=== PATIENT | male | born 1955 | race African-American/Black ===

== ENCOUNTER → 2016-08-31 | Outpatient (CLI) | payer MEDICARE, MEDICAID ==
[~2016-08-31] MED LIST: /LABE20TA; /TAMS4CA OR; ACET65TA; AMBI5TAB OR; ASPI325T; CIPR25SS OR; DARV100T; FLAG500T OR; FLOMAX; LISI10TA4 OR; NICO21DI4; NICO21DI4 TD; PERC5TAB8 OR; TRAM50TA2; VICO5TAB; VICO5TAB OR; flomax
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
== END ==
LOC: M PAIN 10:40
PROVIDERS: ATTEND Nurse Practitioner Family
DX: G62.9 Polyneuropathy, unspecified (principal); I73.1 Thromboangiitis obliterans [Buerger's disease]; Z79.891 Long term (current) use of opiate analgesic; Z79.899 Other long term (current) drug therapy; Z79.82 Long term (current) use of aspirin; I10 Essential (primary) hypertension; M19.90 Unspecified osteoarthritis, unspecified site; F32.9 Major depressive disorder, single episode, unspecified; I95.1 Orthostatic hypotension

== ENCOUNTER → 2016-10-19 | Outpatient (CLI) | payer MEDICARE, MEDICAID ==
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
== END | disposition home or self-care (01) ==
LOC: M PAIN 10:00
PROVIDERS: ATTEND Nurse Practitioner Family
DX: Z09 Encounter for follow-up examination after completed treatment for conditions other than malignant neoplasm (principal); G89.29 Other chronic pain; G62.9 Polyneuropathy, unspecified; I10 Essential (primary) hypertension; G47.33 Obstructive sleep apnea (adult) (pediatric); G43.909 Migraine, unspecified, not intractable, without status migrainosus; N40.0 Benign prostatic hyperplasia without lower urinary tract symptoms; F33.9 Major depressive disorder, recurrent, unspecified; M19.90 Unspecified osteoarthritis, unspecified site; G47.00 Insomnia, unspecified; I95.1 Orthostatic hypotension; I73.00 Raynaud's syndrome without gangrene; Z87.442 Personal history of urinary calculi; Z98.1 Arthrodesis status; Z79.899 Other long term (current) drug therapy; Z79.891 Long term (current) use of opiate analgesic; Z79.82 Long term (current) use of aspirin; Z79.01 Long term (current) use of anticoagulants; Z91.048 Other nonmedicinal substance allergy status; Z88.4 Allergy status to anesthetic agent

== ENCOUNTER → 2016-11-16 | Outpatient (CLI) | payer MEDICARE, MEDICAID ==
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
== END ==
LOC: M PAIN 10:20
PROVIDERS: ATTEND Nurse Practitioner Family
DX: G62.9 Polyneuropathy, unspecified (principal); M79.641 Pain in right hand; M79.642 Pain in left hand; F32.9 Major depressive disorder, single episode, unspecified; I73.00 Raynaud's syndrome without gangrene; N40.0 Benign prostatic hyperplasia without lower urinary tract symptoms; G43.909 Migraine, unspecified, not intractable, without status migrainosus; G47.33 Obstructive sleep apnea (adult) (pediatric); E78.2 Mixed hyperlipidemia; I35.1 Nonrheumatic aortic (valve) insufficiency; Z98.1 Arthrodesis status; Z87.442 Personal history of urinary calculi; Z79.891 Long term (current) use of opiate analgesic; Z79.82 Long term (current) use of aspirin; Z79.899 Other long term (current) drug therapy; Z88.6 Allergy status to analgesic agent; Z91.048 Other nonmedicinal substance allergy status

== ENCOUNTER → 2016-12-01 | Outpatient (REF) | payer MEDICARE, MEDICAID ==
[~2016-12-01] MED LIST changes: +MORP-38 PO
[2016-12-01 13:23] LABS: MEAN CORPUSCULAR HEMOGLOBIN 26.4 pg (27.0-33.0); MEAN CORPUSCULAR HGB CONC 32.5 g/dl (32.0-36.5); MEAN CORPUSCULAR VOLUME 81.3 fl (80.0-96.0); RED CELL DISTRIBUTION WIDTH 13.3 % (11.5-14.5); WHITE BLOOD COUNT 6.3 K/mm3 (4.0-10.0)
[2016-12-01 13:55] LABS: ALBUMIN 3.2 GM/DL (3.2-5.2); ALBUMIN/GLOBULIN RATIO 0.65 (1.00-1.93); ALKALINE PHOSPHATASE 51 U/L (45-117); ALT/SGPT 14 U/L (12-78); ANION GAP 7 MEQ/L (8-16); AST/SGOT 10 U/L (15-37); BILIRUBIN,TOTAL 0.5 MG/DL (0.2-1.0); BLOOD UREA NITROGEN 11 MG/DL (7-18); CALCIUM LEVEL 9.2 MG/DL (8.8-10.2); CARBON DIOXIDE LEVEL 31 MEQ/L (21-32); CHLORIDE LEVEL 100 MEQ/L (98-107); CREATININE FOR GFR 0.78 MG/DL (0.70-1.30); GLOMERULAR FILTRATION RATE > 60.0 (>49); GLUCOSE, FASTING 85 MG/DL (80-110); POTASSIUM SERUM 4.7 MEQ/L (3.5-5.1); SODIUM LEVEL 138 MEQ/L (136-145); TOTAL PROTEIN 8.1 GM/DL (6.4-8.2)
== END ==
LOC: M SFHCPLAZ 10:29
DX: Z02.89 Encounter for other administrative examinations (principal); Z79.899 Other long term (current) drug therapy

== ENCOUNTER 2016-12-02 10:02 | Emergency (ER) | payer MEDICARE, MEDICAID ==
[~2016-12-02] VITALS: Ht 167.6 cm; Wt 68.0 kg
[~2016-12-02 10:02] MED LIST changes: -MORP-38 PO
[2016-12-02] MEDS ORDERED: MORP-38 PO (10:20)
[2016-12-02] MEDS ORDERED: NS 1,000 ML IV ONE (11:00)
[2016-12-02] MEDS ORDERED: ONDANSETRON 4MG/2ML VIAL (J2405) IV ONE (11:00)
[2016-12-02] MEDS ORDERED: KETOROLAC 30 MG/ML VIAL (J1885) IV ONE (11:00)
[2016-12-02 11:36] LABS: BASO # 0.1 K/mm3 (0.0-0.2); EOS # 0.2 K/mm3 (0.0-0.50); EOS % 4.2 % (0.0-3.0); LARGE UNSTAINED CELL # 0.1 K/mm3 (0.0-0.4); LYMPH # 1.9 K/mm3 (1.5-4.5); LYMPH % 31.6 % (24.0-44.0); MEAN CORPUSCULAR HEMOGLOBIN 26.5 pg (27.0-33.0); MEAN CORPUSCULAR HGB CONC 31.8 g/dl (32.0-36.5); MEAN CORPUSCULAR VOLUME 83.4 fl (80.0-96.0); MONO # 0.5 K/mm3 (0.0-0.8); MONO % 8.4 % (0.0-5.0); NEUTROPHILS # 3.1 K/mm3 (1.8-7.7); NEUTROPHILS % 52.7 % (36.0-66.0); PLATELET COUNT, AUTOMATED 344 k/mm3 (150-450); RED CELL DISTRIBUTION WIDTH 13.2 % (11.5-14.5); WHITE BLOOD COUNT 5.9 K/mm3 (4.0-10.0)
[2016-12-02 12:04] LABS: ALBUMIN 3.1 GM/DL (3.2-5.2); ALBUMIN/GLOBULIN RATIO 0.56 (1.00-1.93); ALKALINE PHOSPHATASE 51 U/L (45-117); ALT/SGPT 16 U/L (12-78); ANION GAP 6 MEQ/L (8-16); AST/SGOT 13 U/L (15-37); BILIRUBIN,DIRECT < 0.1 MG/DL (0.0-0.2); BILIRUBIN,TOTAL 0.4 MG/DL (0.2-1.0); BLOOD UREA NITROGEN 10 MG/DL (7-18); CARBON DIOXIDE LEVEL 29 MEQ/L (21-32); CHLORIDE LEVEL 102 MEQ/L (98-107); CREATININE FOR GFR 0.83 MG/DL (0.70-1.30); GLOMERULAR FILTRATION RATE > 60.0 (>49); GLUCOSE, FASTING 88 MG/DL (80-110); SODIUM LEVEL 137 MEQ/L (136-145); TOTAL PROTEIN 8.6 GM/DL (6.4-8.2)
[2016-12-02] MEDS ORDERED: ISOVUE-370 76% 100ML VIAL (Q9967) As Ordered ONE (13:05)
[2016-12-02 14:17] VITALS: BP 163/98
--- NOTE | 2016-12-02 14:27 | REP ---
CT ABDOMEN AND PELVIS WITHOUT CONTRAST: CT abdomen and pelvis is performed without oral or IV contrast. Sagittal and coronal reconstruction images are performed. Comparison made with prior study of 03/30/2011 at [facility]. There are mild interstitial fibrotic changes in the lung bases. Liver demonstrates no gross abnormality with a few tiny scattered calcifications. Gallbladder is grossly unremarkable. Spleen, adrenals, and pancreas are grossly unremarkable. There does appear to be mild right hydronephrosis and proximal hydroureter. There appears to be abnormal soft tissue surrounding the distal, infrarenal abdominal aorta. This extends into the iliac regions. Abdominal aorta appears ectatic, but not aneurysmal. There is a tiny amount of free fluid in the right lower quadrant. I would recommend CT with IV contrast to better evaluate the distal abdominal aorta and surrounding soft tissue and also to better differentiate the appendix. IMPRESSION: Mild right hydronephrosis. Abnormal soft tissue density surrounding the distal abdominal aorta. This is of uncertain significance. Recommend CT abdomen and pelvis with IV contrast to better evaluate. Signed by Niko Milton MD 12/03/2016 05:13 P
--- NOTE | 2016-12-02 14:38 | REP ---
CT ABDOMEN AND PELVIS WITH CONTRAST: TECHNIQUE: Axial contrast enhanced images from the lung bases to the pubic symphysis using 100 mL Isovue 370 intravenous contrast material with multiplanar reformations. The visualized lung bases demonstrate mild interstitial fibrotic change. The liver demonstrates no enhancing mass. The spleen, adrenals, pancreas and left kidney appear normal. The right kidney demonstrates mild hydronephrosis and there is mild right hydroureter proximally. The distal abdominal aorta demonstrates mild to moderate atherosclerotic calcification with mild ectasia up to 2.5 cm in diameter. There is ill-defined soft tissue seen circumferentially surrounding the distal abdominal aorta. This begins just below the level of the renal arteries and extends below the aortic bifurcation, surrounding the common iliac arteries bilaterally as well. This abnormal soft tissue appears to be obstruct the mid right ureter causing the mild right hydronephrosis. A very small amount of free fluid is seen in the right lower quadrant. The appendix does not appear to be inflamed. No bowel wall thickening is seen. The urinary bladder is minimally distended and not optimally evaluated. IMPRESSION: Diffuse abnormal soft tissue surrounding the distal abdominal aorta below the level of the renal arteries and surrounding the common iliac arteries in the pelvis as well. The soft tissue appears to be obstructing the mid right ureter causing mild right hydronephrosis and proximal right hydroureter. The distal abdominal aorta itself demonstrates atherosclerotic calcification with no dissection or evidence for rupture. 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 Lymphoma is a less likely possibility and needs to be excluded. Signed by Niko Milton MD 12/03/2016 05:13 P
--- NOTE | 2016-12-06 08:40 | ED PDOC ---
Post-Departure Follow-Up radiology report faxed to PCP, Alee Terry MD December 06, 2016 08:40
== END 2016-12-02 14:29 | disposition home or self-care (01) ==
LOC: M ED 11:15
DX: N35.9 Urethral stricture, unspecified (principal); N13.5 Crossing vessel and stricture of ureter without hydronephrosis; I10 Essential (primary) hypertension; J45.909 Unspecified asthma, uncomplicated; Z87.442 Personal history of urinary calculi; Z79.891 Long term (current) use of opiate analgesic; Z79.899 Other long term (current) drug therapy; Z88.4 Allergy status to anesthetic agent
CPT/HCPCS: 74176; 74177; 80048; 80076; 81001; 83690; 85025; 87086; 96361; 96374; 96375; 99283; J1885; J2405; Q9967

== ENCOUNTER → 2016-12-09 | Outpatient (REF) | payer MEDICARE, MEDICAID ==
[~2016-12-09] MED LIST changes: +MORP-38 PO
[2016-12-09 16:52] LABS: CALCIUM LEVEL 8.1 MG/DL (8.8-10.2); CREATININE FOR GFR 2.09 MG/DL (0.70-1.30); POTASSIUM SERUM 3.6 MEQ/L (3.5-5.1)
[2016-12-09 18:31] LABS: BASO # 0.1 K/mm3 (0.0-0.2); BASO % 1.1 % (0.0-1.0); EOS # 0.2 K/mm3 (0.0-0.50); EOS % 3.6 % (0.0-3.0); LARGE UNSTAINED CELL # 0.1 K/mm3 (0.0-0.4); LARGE UNSTAINED CELL % 2.3 % (0.0-4.0); LYMPH % 32.5 % (24.0-44.0); MEAN CORPUSCULAR HEMOGLOBIN 25.6 pg (27.0-33.0); MEAN CORPUSCULAR HGB CONC 30.8 g/dl (32.0-36.5); MEAN CORPUSCULAR VOLUME 83.2 fl (80.0-96.0); MONO # 0.5 K/mm3 (0.0-0.8); MONO % 8.5 % (0.0-5.0); NEUTROPHILS # 3.2 K/mm3 (1.8-7.7); NEUTROPHILS % 52.1 % (36.0-66.0); PLATELET COUNT, AUTOMATED 299 k/mm3 (150-450); RED CELL DISTRIBUTION WIDTH 13.4 % (11.5-14.5); WHITE BLOOD COUNT 6.2 K/mm3 (4.0-10.0)
[2016-12-09 21:40] LABS: ERYTHROCYTE SEDIMENTATION RATE 99 mm/hr (0-20)
== END ==
LOC: M LABDRAW1 13:34
PROVIDERS: ATTEND Student in an Organized Health Care Education/Training Program
DX: N13.5 Crossing vessel and stricture of ureter without hydronephrosis (principal); N13.1 Hydronephrosis with ureteral stricture, not elsewhere classified

== ENCOUNTER → 2016-12-14 | Outpatient (CLI) | payer MEDICARE, MEDICAID ==
[2016-12-14 13:10] LABS: MEAN CORPUSCULAR HGB CONC 31.2 g/dl (32.0-36.5); MEAN CORPUSCULAR VOLUME 83.3 fl (80.0-96.0); RED CELL DISTRIBUTION WIDTH 13.7 % (11.5-14.5)
[2016-12-14 13:30] LABS: ANION GAP 6 MEQ/L (8-16); BLOOD UREA NITROGEN 23 MG/DL (7-18); CALCIUM LEVEL 8.3 MG/DL (8.8-10.2); CARBON DIOXIDE LEVEL 30 MEQ/L (21-32); CHLORIDE LEVEL 102 MEQ/L (98-107); CREATININE FOR GFR 0.87 MG/DL (0.70-1.30); GLOMERULAR FILTRATION RATE > 60.0 (>49); GLUCOSE, FASTING 88 MG/DL (80-110); POTASSIUM SERUM 4.2 MEQ/L (3.5-5.1); SODIUM LEVEL 138 MEQ/L (136-145)
== END ==
LOC: M LAB 12:24
PROVIDERS: ATTEND Student in an Organized Health Care Education/Training Program
DX: N13.5 Crossing vessel and stricture of ureter without hydronephrosis (principal); Z13.1 Encounter for screening for diabetes mellitus

== ENCOUNTER → 2016-12-23 | Outpatient (CLI) | payer MEDICARE, MEDICAID ==
[~2016-12-23] MED LIST changes: +AMLO2.5T PO; +ASPI1TAB PO; +ASPI32ECTA PO; +CELE40TA PO; +CHLO25TA PO; +CITA40TA4 PO; +COLA100C3 PO; +CYCL5TA PO; +CYMB1CAP5 PO; +FINA5TAB2 PO; +GABA-282 PO; +HYDR-3719 PO; +LISI-538 PO; +MORP15TA2 PO; +MULT1TAB10 PO; +OMEP20CA3 PO; +PENT40TASA PO; +PRED20TA PO; +ZOCO20TA PO
--- NOTE | 2016-12-28 13:14 | DEXA ---
AP SPINE L1 - L4 1.362 1.0 0.0 LT FEMUR NECK 0.837 -1.8 -1.6 RT FEMUR TOTAL 0.917 -1.3 -1.5 TOTAL BODY TOTAL OTHER DUAL FEMUR FRAX* ASSESSMENT Risk factors: Broken bones (as adult), smoker, prednisone. 10 year probability of fracture Major osteoporotic fracture 20.0 % Hip fracture 6.8 % COMMENTS: Normal bone densitometry of the spine. There is low bone density of the hips. FOLLOW-UP: Recommendation for the next bone density exam: 2 years. DIETERD
== END ==
LOC: M WHC 13:45
PROVIDERS: ATTEND Family Medicine
DX: Z79.52 Long term (current) use of systemic steroids (principal); M85.80 Other specified disorders of bone density and structure, unspecified site

== ENCOUNTER → 2016-12-31 | Day surgery (SDC) | payer MEDICARE, MEDICAID ==
[~2016-12-31] VITALS: Ht 167.6 cm; Wt 67.4 kg
[~2016-12-31] MED LIST changes: +BUPIVACAINE/EPIN 0.25% 30 ML VIAL As Ordered ONE; +DESFLURANE 240 ML INHALANT As Ordered ONE; +GLYCOPYRROLATE INJ 0.2 MG/ML 2 ML VIAL As Ordered ONE; +LABETALOL HCL 100 MG/20 ML VIAL As Ordered ONE; +LIDOCAINE 2% INJ 100 MG/5 ML SDV (FOR ANES.) As Ordered ONE; +LR 1,000 ML IV ONE; +LR 1,000 ML IV SCH; +MIDAZOLAM INJ 2 MG/2 ML VIAL (J2250) As Ordered ONE; +NEOSTIGMINE 1MG/ML 5 ML SYRINGE (J2710) As Ordered ONE; +ONDANSETRON 4MG/2ML VIAL (J2405) As Ordered ONE; +ONDANSETRON 4MG/2ML VIAL (J2405) IV PRN; +PERCOCET 5MG/325MG TAB PO PRN; +PROPOFOL 500 MG/50 ML VIAL As Ordered ONE; +SUCCINYLCHOLINE 100 MG/5 ML SYRINGE (J0330) As Ordered ONE; +dexameTHASONE 4 MG/ML 1ML VIAL (J1100) As Ordered ONE; +fentaNYL 100 MCG/2 ML INJECTION (J3010) As Ordered ONE
[2016-12-31] MEDS: fentaNYL 100 MCG/2 ML INJECTION (J3010) IV PRN ×4 (15:37→16:05)
[2016-12-31] MEDS: LABETALOL HCL 100 MG/20 ML VIAL IV SCH ×3 (15:37→16:00)
[2016-12-31 16:00] VITALS: BP 193/93
--- NOTE | 2016-12-31 16:08 | ECGEPIP ---
Stationary ECG Study [facility] Test Date: 2016-12-31 Pat Name: EVIE DIALLO Department: Room: - Gender: M [employer] Equipment Operator: HERLINDA : 1955 Requested By: YENNY Delgado Order Number: [id number] Reading MD: Helio Guerrero Measurements Intervals [place] Rate: 60 P: 51 [place]: 175 QRS: 37 QRSD: 84 T: 64 QT: 417 QTc: 417 Interpretive Statements SINUS RHYTHM Electronically Signed On 12-31-2016 16:08:30 EDT by Helio Guerrero
[2016-12-31 17:20] VITALS: BP 170/84
--- NOTE | 2017-01-01 10:52 | RO ---
DATE OF PROCEDURE: 12/31/2016 PREPROCEDURE DIAGNOSIS: Retroperitoneal mass. POSTPROCEDURE DIAGNOSIS: Retroperitoneal mass. PROCEDURE: Diagnostic laparoscopy with retroperitoneal biopsy of mass. SURGEON: Dr. Barrera CHEMICAL RESEARCH TECHNICIAN: Dr. Campbell. ESTIMATED BLOOD LOSS: 5 mL. COMPLICATIONS: None. INDICATIONS FOR PROCEDURE: The patient is a 61-year-old male who has had difficulty with urination. On CT scan was found to have retroperitoneal fibrosis with a mass. He is unable to have CT guided biopsy due to its close proximity to the aorta. Therefore, I was called to evaluate and perform a biopsy. Risks and benefits of the procedure, not limited but including bleeding, infection, hernia formation, damage to surrounding structures, need further surgery, and possibility of not obtaining a proper diagnosis were discussed in detail with the patient and the patient's family. Informed consent was obtained and the procedure was planned. DESCRIPTION OF PROCEDURE: The patient brought back to operating room #3. After sufficient sedation, the abdomen was sterilely prepped and draped. Next, a time-out was done to confirm proper patient and proper procedure. Following that, a 5 mm incision was made in the left upper quadrant. A Veress needle was inserted and the abdomen was insufflated to 50 mmHg. Next, a 5 mm port was placed at the umbilicus. Using Optiview port, the abdomen was entered. Another 5 mm port in the right lower quadrant. The Enseal was then used to make an incision into the sigmoid colon mesentery. Circumferential incision was made through the peritoneum. There was a very large fibrous mass located at the base of the mesentery overlying the aorta. Three separate wedges of this tissue were carefully removed. Bleeding was controlled using Enseal. Once these three tissue samples were removed, it was sent to pathology. There was no bleeding encountered; however, due to some oozing, 3 grams of Nikko were placed. The abdomen was then desufflated. Skin incisions were closed with #4-0 Vicryl subcuticular sutures. The abdomen was cleaned and dried. Steri-Strips, 4x4 and tape were applied, thus ending procedure.
== END | disposition home or self-care (01) ==
LOC: M SDC 12:02
PROVIDERS: ATTEND Surgery
DX: R19.09 Other intra-abdominal and pelvic swelling, mass and lump (principal); I10 Essential (primary) hypertension; I73.00 Raynaud's syndrome without gangrene; I73.1 Thromboangiitis obliterans [Buerger's disease]; I35.0 Nonrheumatic aortic (valve) stenosis; E78.00 Pure hypercholesterolemia, unspecified; N28.9 Disorder of kidney and ureter, unspecified; F41.9 Anxiety disorder, unspecified; F32.9 Major depressive disorder, single episode, unspecified; N40.0 Benign prostatic hyperplasia without lower urinary tract symptoms; G47.33 Obstructive sleep apnea (adult) (pediatric); Z87.891 Personal history of nicotine dependence; Z79.899 Other long term (current) drug therapy; Z79.82 Long term (current) use of aspirin; Z88.4 Allergy status to anesthetic agent; Z91.048 Other nonmedicinal substance allergy status
CPT/HCPCS: 49321; 88305; 93005; A6024; J0330; J0690; J1100; J2250; J2405; J2710; J3010

== ENCOUNTER → 2017-01-17 | Outpatient (CLI) | payer MEDICARE, MEDICAID ==
[~2017-01-17] MED LIST changes: -BUPIVACAINE/EPIN 0.25% 30 ML VIAL As Ordered ONE; -DESFLURANE 240 ML INHALANT As Ordered ONE; -GLYCOPYRROLATE INJ 0.2 MG/ML 2 ML VIAL As Ordered ONE; -LABETALOL HCL 100 MG/20 ML VIAL As Ordered ONE; -LIDOCAINE 2% INJ 100 MG/5 ML SDV (FOR ANES.) As Ordered ONE; -LR 1,000 ML IV ONE; -LR 1,000 ML IV SCH; -MIDAZOLAM INJ 2 MG/2 ML VIAL (J2250) As Ordered ONE; -NEOSTIGMINE 1MG/ML 5 ML SYRINGE (J2710) As Ordered ONE; -ONDANSETRON 4MG/2ML VIAL (J2405) As Ordered ONE; -ONDANSETRON 4MG/2ML VIAL (J2405) IV PRN; -PERCOCET 5MG/325MG TAB PO PRN; -PROPOFOL 500 MG/50 ML VIAL As Ordered ONE; -SUCCINYLCHOLINE 100 MG/5 ML SYRINGE (J0330) As Ordered ONE; -dexameTHASONE 4 MG/ML 1ML VIAL (J1100) As Ordered ONE; -fentaNYL 100 MCG/2 ML INJECTION (J3010) As Ordered ONE
== END ==
LOC: M PAIN 10:00
PROVIDERS: ATTEND Nurse Practitioner Family
DX: G89.29 Other chronic pain (principal); G62.9 Polyneuropathy, unspecified; I10 Essential (primary) hypertension; I73.00 Raynaud's syndrome without gangrene; N40.0 Benign prostatic hyperplasia without lower urinary tract symptoms; G43.909 Migraine, unspecified, not intractable, without status migrainosus; G47.33 Obstructive sleep apnea (adult) (pediatric); E78.2 Mixed hyperlipidemia; I95.1 Orthostatic hypotension; I35.1 Nonrheumatic aortic (valve) insufficiency; Z98.1 Arthrodesis status; M34.9 Systemic sclerosis, unspecified; F43.21 Adjustment disorder with depressed mood; M19.90 Unspecified osteoarthritis, unspecified site; I73.1 Thromboangiitis obliterans [Buerger's disease]; Z88.6 Allergy status to analgesic agent; Z91.09 Other allergy status, other than to drugs and biological substances; Z79.891 Long term (current) use of opiate analgesic; Z79.82 Long term (current) use of aspirin; Z79.52 Long term (current) use of systemic steroids; Z79.899 Other long term (current) drug therapy

== ENCOUNTER → 2017-01-19 | Outpatient (CLI) | payer MEDICARE, MEDICAID ==
[~2017-01-19] MED LIST changes: +ASPI325T24 PO; -ASPI32ECTA PO; -COLA100C3 PO; +COLA100C5 PO; -CYCL5TA PO; +CYCL5TAB PO
--- NOTE | 2017-01-19 11:03 | REP ---
REASON: Retroperitoneal fibrosis. Multiple ultrasonographic images of the liver show the parenchymal echo pattern to be within normal limits. Incidental note is made of granulomatous calcifications in the mid portion of the right lobe. There is no intrahepatic or extrahepatic ductal dilatation. The common bile duct measures 5 mm. Multiple ultrasonographic images of the gallbladder show no abnormalities. The imaged portion of the pancreas is within normal limits. The spleen measures 8.5 x 3.4 x 7.4 cm and there is no splenic or perisplenic abnormality. The right kidney measures 9.7 x 6.1 x 3.7 cm and the left kidney measures 10.1 x 4.7 x 5.2 cm. Both kidneys are within normal limits. Multiple ultrasonographic images of the aorta show increased echoes surrounding it consistent with the finding seen by CT. There is no aortic aneurysmal dilatation. IMPRESSION: Periaortic soft tissue as described above consistent with the CT finding suggesting retroperitoneal fibrosis. Signed by Martin Armendariz DO 01/19/2017 11:05 A
== END ==
LOC: M RAD 09:09
PROVIDERS: ATTEND Student in an Organized Health Care Education/Training Program
DX: N13.5 Crossing vessel and stricture of ureter without hydronephrosis (principal)
CPT/HCPCS: 76700; G0463

== ENCOUNTER → 2017-01-26 | Outpatient (CLI) | payer MEDICARE, MEDICAID ==
--- NOTE | 2017-01-26 19:13 | REP ---
CT abdomen and pelvis without IV or oral contrast: History: Retroperitoneal fibrosis. On 12/31/2016, the patient underwent diagnostic laparoscopy with retroperitoneal mass biopsy. No malignancy identified. Comparison CT study: 12/02/2016. Comparison is also made with a remote prior CT study from 06/24/2011. CT findings: Preliminary polysom tech radiograph demonstrates a intramedullary arcelia in the left proximal femur. Moderate colonic stool and mild gaseous distension of small bowel loops in the central abdomen. The lung bases are clear. There are granulomatous calcifications in the liver. No focal liver mass lesion is appreciated. Spleen is unremarkable. No adrenal lesion is observed. No abnormality is noted in the gallbladder or pancreas. Vascular calcification is seen in the abdominal aorta. The aorta and common iliac arteries are mildly ectatic as before. Abdominal aorta measures 2.8 cm in AP dimension. The right common iliac artery measures 17 mm and the left 15 mm in AP dimension. The soft tissue process surrounding the aorta and common iliac arteries on the CT study from 12/02/2016 has improved in the interval since that prior study. Whereas this soft tissue rind around the aorta measured up to 17 mm in thickness on the previous study, today it does not appear to measure more than 6 mm in thickness. The previously noted right-sided hydronephrosis is resolved. No new lesion is seen. Small and large intestinal bowel loops are unremarkable on CT images. No evidence of free air. Vascular calcification is again noted. No bony destructive lesion. Impression: Infiltrative lesion surrounding the aorta and iliac bifurcation is improved on today's CT study compared to the 12/02/2016 exam. The previously noted right-sided hydronephrosis is resolved. Signed by Gallito Forte MD 01/26/2017 08:28 P
== END ==
LOC: M RAD 16:59
PROVIDERS: ATTEND Student in an Organized Health Care Education/Training Program
DX: N13.5 Crossing vessel and stricture of ureter without hydronephrosis (principal)

== ENCOUNTER → 2017-03-03 | Outpatient (CLI) | payer MEDICARE, MEDICAID ==
[2017-03-03 12:51] LABS: ANION GAP 10 MEQ/L (8-16); BLOOD UREA NITROGEN 9 MG/DL (7-18); CALCIUM LEVEL 8.8 MG/DL (8.8-10.2); CARBON DIOXIDE LEVEL 27 MEQ/L (21-32); CHLORIDE LEVEL 97 MEQ/L (98-107); CREATININE FOR GFR 0.69 MG/DL (0.70-1.30); GLOMERULAR FILTRATION RATE > 60.0 (>49); GLUCOSE, FASTING 120 MG/DL (80-110); SODIUM LEVEL 134 MEQ/L (136-145)
--- NOTE | 2017-03-03 13:24 | REP ---
CERVICAL SPINE, SEVEN VIEWS: HISTORY: Fall. The patient is status post C4-6 anterior spinal fusion. A fixation plate and bone graft material are present. There is no acute fracture or subluxation. The C6-7 intervertebral disc is decreased in height consistent with disc degeneration. There is narrowing of the C4-6 neural foramina secondary to uncinate process hypertrophy. There is loss of the normal lordotic curve. IMPRESSION: 1. The patient is status post C4-6 anterior spinal fusion. 2. Degenerative change as described above. Signed by Jim Valdez MD 03/03/2017 01:25 P
== END ==
LOC: M LAB 11:36
PROVIDERS: ATTEND Student in an Organized Health Care Education/Training Program
DX: N13.5 Crossing vessel and stricture of ureter without hydronephrosis (principal); W19.XXXA Unspecified fall, initial encounter; Y92.89 Other specified places as the place of occurrence of the external cause; Y93.89 Activity, other specified; Y99.8 Other external cause status; Z98.890 Other specified postprocedural states; M50.30 Other cervical disc degeneration, unspecified cervical region
CPT/HCPCS: 36415; 72052; 80048; G0463

== ENCOUNTER → 2017-03-17 | Outpatient (CLI) | payer MEDICARE, MEDICAID ==
[2017-03-17 13:45] LABS: ANION GAP 8 MEQ/L (8-16); BLOOD UREA NITROGEN 10 MG/DL (7-18); CALCIUM LEVEL 8.7 MG/DL (8.8-10.2); CARBON DIOXIDE LEVEL 27 MEQ/L (21-32); CHLORIDE LEVEL 102 MEQ/L (98-107); CREATININE FOR GFR 0.68 MG/DL (0.70-1.30); GLOMERULAR FILTRATION RATE > 60.0 (>49); GLUCOSE, FASTING 77 MG/DL (80-110); POTASSIUM SERUM 4.4 MEQ/L (3.5-5.1); SODIUM LEVEL 137 MEQ/L (136-145)
== END ==
LOC: M LAB 12:52
PROVIDERS: ATTEND Student in an Organized Health Care Education/Training Program
DX: R73.9 Hyperglycemia, unspecified (principal)

== ENCOUNTER → 2017-03-17 | Outpatient (CLI) | payer MEDICARE, MEDICAID ==
[~2017-03-17] MED LIST changes: +GASTROGRAFIN SOLUTION 30ML (Q9963) As Ordered ONE; +ISOVUE-370 76% 100ML VIAL (Q9967) As Ordered ONE
--- NOTE | 2017-03-17 16:34 | REP ---
CT ABDOMEN AND PELVIS WITH AND WITHOUT CONTRAST: TECHNIQUE: Axial noncontrast images through the abdomen followed by contrast-enhanced images through the abdomen and pelvis using 100 mL Isovue 370 intravenous contrast material, with coronal and sagittal reformations. The visualized lung bases demonstrate mild fibrotic changes. A few tiny scattered calcifications are seen in the liver. No liver mass is seen. The spleen is normal in size with no intrinsic abnormality. Adrenals, pancreas and kidneys are unremarkable. There is no hydronephrosis. There are atherosclerotic calcifications of the abdominal aorta. Once again, there is some ill defined soft tissue surrounding the distal end of the aorta and extending into the common iliac regions bilaterally. There has been significant improvement when compared to the prior CT examination of 12/02/2016 and no change when compared to the prior exam of 01/26/2017. No new adenopathy is seen in the abdomen or pelvis. There is no bowel wall thickening. There is no free air or free fluid. No pelvic mass is seen. IMPRESSION: Stable CT findings compared to 01/26/2017. Mild residual ill-defined soft tissue surrounding the distal abdominal aorta and common iliac vessels most consistent with retroperitoneal fibrosis. Signed by Niko Milton MD 03/17/2017 05:08 P
== END ==
LOC: M RAD 13:09
PROVIDERS: ATTEND Internal Medicine Medical Oncology
DX: R19.09 Other intra-abdominal and pelvic swelling, mass and lump (principal); R73.9 Hyperglycemia, unspecified
CPT/HCPCS: 36415; 74178; 80048; 83036; Q9963; Q9967

== ENCOUNTER → 2017-04-05 | Outpatient (CLI) | payer MEDICARE, MEDICAID ==
[~2017-04-05] MED LIST changes: -GASTROGRAFIN SOLUTION 30ML (Q9963) As Ordered ONE; -ISOVUE-370 76% 100ML VIAL (Q9967) As Ordered ONE
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
== END ==
LOC: M PAIN 10:00
PROVIDERS: ATTEND Nurse Practitioner Family
DX: G89.29 Other chronic pain (principal); G62.9 Polyneuropathy, unspecified; I10 Essential (primary) hypertension; I73.00 Raynaud's syndrome without gangrene; N40.0 Benign prostatic hyperplasia without lower urinary tract symptoms; G43.909 Migraine, unspecified, not intractable, without status migrainosus; F32.89 Other specified depressive episodes; E78.2 Mixed hyperlipidemia; G47.00 Insomnia, unspecified; M81.0 Age-related osteoporosis without current pathological fracture; G47.33 Obstructive sleep apnea (adult) (pediatric); Z79.891 Long term (current) use of opiate analgesic; Z87.891 Personal history of nicotine dependence; Z88.8 Allergy status to other drugs, medicaments and biological substances; Z91.048 Other nonmedicinal substance allergy status; Z79.52 Long term (current) use of systemic steroids; Z79.899 Other long term (current) drug therapy

== ENCOUNTER → 2017-05-02 | Outpatient (CLI) | payer MEDICARE, MEDICAID ==
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
== END ==
LOC: M PAIN 13:15
PROVIDERS: ATTEND Nurse Practitioner Family
DX: G89.29 Other chronic pain (principal); G62.9 Polyneuropathy, unspecified; I10 Essential (primary) hypertension; I73.1 Thromboangiitis obliterans [Buerger's disease]; G47.33 Obstructive sleep apnea (adult) (pediatric); G47.00 Insomnia, unspecified; J30.81 Allergic rhinitis due to animal (cat) (dog) hair and dander; Z99.89 Dependence on other enabling machines and devices; Z72.0 Tobacco use; D50.9 Iron deficiency anemia, unspecified; K21.9 Gastro-esophageal reflux disease without esophagitis; I73.00 Raynaud's syndrome without gangrene; F32.9 Major depressive disorder, single episode, unspecified; Z88.4 Allergy status to anesthetic agent; Z91.048 Other nonmedicinal substance allergy status; Z79.891 Long term (current) use of opiate analgesic; Z79.82 Long term (current) use of aspirin; Z79.52 Long term (current) use of systemic steroids; Z79.899 Other long term (current) drug therapy

== ENCOUNTER → 2017-05-13 | Outpatient (CLI) | payer MEDICARE, MEDICAID ==
[2017-05-13 12:05] LABS: MEAN CORPUSCULAR HEMOGLOBIN 27.3 pg (27.0-33.0); MEAN CORPUSCULAR VOLUME 85.1 fl (80.0-96.0); RED CELL DISTRIBUTION WIDTH 14.7 % (11.5-14.5); WHITE BLOOD COUNT 6.2 10^3/uL (4.0-10.0)
--- NOTE | 2017-05-13 12:27 | REP ---
Chest two views HISTORY: Abnormal lung sounds Comparison: 07/08/2015 Linear density is present in the right lower lobe consistent with scar. The left lung is clear. The heart is normal in size. The pulmonary vasculature is normal in appearance. The bony structure is intact. IMPRESSION: No acute disease. Signed by Jim Valdez MD 05/13/2017 12:19 P
[2017-05-13 22:30] LABS: ANION GAP 9 MEQ/L (8-16); BLOOD UREA NITROGEN 9 MG/DL (7-18); CALCIUM LEVEL 9.3 MG/DL (8.8-10.2); CARBON DIOXIDE LEVEL 28 MEQ/L (21-32); CHLORIDE LEVEL 99 MEQ/L (98-107); CREATININE FOR GFR 0.73 MG/DL (0.70-1.30); GLOMERULAR FILTRATION RATE > 60.0 (>49); GLUCOSE, FASTING 84 MG/DL (80-110); POTASSIUM SERUM 4.6 MEQ/L (3.5-5.1); SODIUM LEVEL 136 MEQ/L (136-145)
== END ==
LOC: M LAB 11:07
PROVIDERS: ATTEND Student in an Organized Health Care Education/Training Program
DX: D48.1 Neoplasm of uncertain behavior of connective and other soft tissue (principal); R10.31 Right lower quadrant pain; Z11.59 Encounter for screening for other viral diseases; R09.89 Other specified symptoms and signs involving the circulatory and respiratory systems

== ENCOUNTER → 2017-05-24 | Outpatient (CLI) | payer MEDICARE, MEDICAID ==
[~2017-05-24] MED LIST changes: +GASTROGRAFIN SOLUTION 30ML (Q9963) As Ordered ONE; +ISOVUE-370 76% 100ML VIAL (Q9967) As Ordered ONE
[2017-05-24 11:59] LABS: PERCENT SATURATION 18.3 % (19.7-50.0)
[2017-05-24 12:01] LABS: FOLATE 10.8 NG/ML
--- NOTE | 2017-05-24 14:29 | REP ---
CT of the abdomen and pelvis with IV contrast and bowel contrast: Comparisons are 03/17/2017 12/02/2016. The patient has known retroperitoneal fibrosis. He currently complains of right lower quadrant abdominal pain. The non mass-like soft tissue density surrounding the distal aorta above the bifurcation and extending into the proximal iliac arteries on 12/02/2016 has significantly decreased in size on the 2016 and on the study today is a similar to 03/17/2017. 12/02/2069 there was right hydronephrosis. This had resolved on 03/17/2079 is no longer present today. The appendix has a normal appearance. There are no renal or ureteral calculi. The bladder is unremarkable. There is no pelvic adenopathy or ascites. There is calcified vascular atheroma. The abdominal aorta, iliac and femoral arteries, unchanged. No aneurysm. The visualized lower lung prieto are unremarkable. The hepatic parenchyma, gallbladder, pancreas, spleen and adrenals are unremarkable. There is no bowel distension or obstruction. Mesentery is unremarkable. There is no diverticulosis or diverticulitis. Impression: The retroperitoneal fibrosis has significantly decreased and is similar appearance to 03/17/2017. The right hydronephrosis has resolved. The appendix has a normal appearance. There is no diverticulosis or diverticulitis. No bowel distension or obstruction. The gallbladder, pancreas, spleen and liver are unremarkable. No ascites or adenopathy. Signed by Niko Suero MD 05/24/2017 02:19 P
== END ==
LOC: M RAD 11:04
PROVIDERS: ATTEND Student in an Organized Health Care Education/Training Program
DX: R10.31 Right lower quadrant pain (principal); D64.9 Anemia, unspecified
CPT/HCPCS: 36415; 74177; 82607; 82728; 82746; 84466; Q9963; Q9967

== ENCOUNTER → 2017-06-28 | Outpatient (CLI) | payer MEDICARE, MEDICAID ==
[~2017-06-28] MED LIST changes: -GASTROGRAFIN SOLUTION 30ML (Q9963) As Ordered ONE; -ISOVUE-370 76% 100ML VIAL (Q9967) As Ordered ONE
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
== END ==
LOC: M PAIN 10:45
PROVIDERS: ATTEND Nurse Practitioner Family
DX: G89.29 Other chronic pain (principal); G62.9 Polyneuropathy, unspecified; M54.2 Cervicalgia; I10 Essential (primary) hypertension; I73.00 Raynaud's syndrome without gangrene; N40.0 Benign prostatic hyperplasia without lower urinary tract symptoms; G43.909 Migraine, unspecified, not intractable, without status migrainosus; G47.33 Obstructive sleep apnea (adult) (pediatric); I73.1 Thromboangiitis obliterans [Buerger's disease]; F32.9 Major depressive disorder, single episode, unspecified; F17.210 Nicotine dependence, cigarettes, uncomplicated; E78.2 Mixed hyperlipidemia; I95.1 Orthostatic hypotension; Z98.1 Arthrodesis status; D50.9 Iron deficiency anemia, unspecified; Z79.52 Long term (current) use of systemic steroids; Z79.891 Long term (current) use of opiate analgesic; Z79.899 Other long term (current) drug therapy; Z88.4 Allergy status to anesthetic agent

== ENCOUNTER → 2017-07-12 | Outpatient (CLI) | payer MEDICARE, MEDICAID | LOC: M PAIN 14:45 | DX: G62.9 Polyneuropathy, unspecified (principal); M54.2 Cervicalgia; I73.1 Thromboangiitis obliterans [Buerger's disease]; I10 Essential (primary) hypertension; I95.1 Orthostatic hypotension; I73.00 Raynaud's syndrome without gangrene; I35.9 Nonrheumatic aortic valve disorder, unspecified; E78.2 Mixed hyperlipidemia; G43.909 Migraine, unspecified, not intractable, without status migrainosus; G47.33 Obstructive sleep apnea (adult) (pediatric); G47.00 Insomnia, unspecified; M19.90 Unspecified osteoarthritis, unspecified site; F17.210 Nicotine dependence, cigarettes, uncomplicated; Z79.891 Long term (current) use of opiate analgesic; Z79.82 Long term (current) use of aspirin; Z79.899 Other long term (current) drug therapy; Z87.39 Personal history of other diseases of the musculoskeletal system and connective tissue | CPT/HCPCS: G0463 ==

== ENCOUNTER 2017-08-03 08:48 | Day surgery (SDC) | payer MEDICARE, MEDICAID ==
[2017-08-03] MEDS: NS 1,000 ML IV (09:18)
[2017-08-03] MEDS ORDERED: PROPOFOL 200 MG/20 ML VIAL As Ordered ×2 (10:28→10:38)
[2017-08-03] MEDS ORDERED: LIDOCAINE 2% INJ 100 MG/5 ML SDV (FOR ANES.) As Ordered (10:28)
== END 2017-08-03 11:21 | disposition home or self-care (01) ==
LOC: M OPP 08:48
DX: Z12.11 Encounter for screening for malignant neoplasm of colon (principal); K64.0 First degree hemorrhoids; K62.1 Rectal polyp; Z86.010 Personal history of colon polyps; N40.0 Benign prostatic hyperplasia without lower urinary tract symptoms; F17.210 Nicotine dependence, cigarettes, uncomplicated; K57.30 Diverticulosis of large intestine without perforation or abscess without bleeding; I10 Essential (primary) hypertension; K82.9 Disease of gallbladder, unspecified; R06.2 Wheezing; I73.00 Raynaud's syndrome without gangrene; I73.1 Thromboangiitis obliterans [Buerger's disease]; M34.9 Systemic sclerosis, unspecified; Z79.82 Long term (current) use of aspirin; Z79.899 Other long term (current) drug therapy; Z88.6 Allergy status to analgesic agent
CPT/HCPCS: 45385

== ENCOUNTER → 2017-08-09 | Outpatient (CLI) | payer MEDICARE, MEDICAID | LOC: M PAIN 10:45 | DX: G62.9 Polyneuropathy, unspecified (principal); I10 Essential (primary) hypertension; I73.1 Thromboangiitis obliterans [Buerger's disease]; I73.01 Raynaud's syndrome with gangrene; F32.9 Major depressive disorder, single episode, unspecified; F17.210 Nicotine dependence, cigarettes, uncomplicated; Z79.891 Long term (current) use of opiate analgesic; Z79.899 Other long term (current) drug therapy; Z79.82 Long term (current) use of aspirin; Z88.8 Allergy status to other drugs, medicaments and biological substances; Z91.09 Other allergy status, other than to drugs and biological substances | CPT/HCPCS: G0463 ==

== ENCOUNTER → 2017-09-01 | Outpatient (CLI) | payer MEDICARE, MEDICAID ==
[~2017-09-01] MED LIST changes: -/LABE20TA; -/TAMS4CA OR; -ACET65TA; -AMBI5TAB OR; -AMLO2.5T PO; -ASPI1TAB PO; -ASPI325T; -ASPI325T24 PO; -CELE40TA PO; -CHLO25TA PO; -CIPR25SS OR; -CITA40TA4 PO; -COLA100C5 PO; -CYCL5TAB PO; -CYMB1CAP5 PO; -DARV100T; -FINA5TAB2 PO; -FLAG500T OR; -FLOMAX; -GABA-282 PO; +GASTROGRAFIN SOLUTION 30ML (Q9963) As Ordered; -HYDR-3719 PO; +ISOVUE-370 76% 100ML VIAL (Q9967) As Ordered; -LISI-538 PO; -LISI10TA4 OR; -MORP-38 PO; -MORP15TA2 PO; -MULT1TAB10 PO; -NICO21DI4; -NICO21DI4 TD; -OMEP20CA3 PO; -PENT40TASA PO; -PERC5TAB8 OR; -PRED20TA PO; -TRAM50TA2; -VICO5TAB; -VICO5TAB OR; -ZOCO20TA PO; -flomax
== END ==
LOC: M RAD 07:43
DX: J44.9 Chronic obstructive pulmonary disease, unspecified (principal); J84.10 Pulmonary fibrosis, unspecified
CPT/HCPCS: Q9963

== ENCOUNTER → 2017-09-06 | Outpatient (CLI) | payer MEDICARE, MEDICAID | LOC: M PAIN 10:15 | DX: G62.9 Polyneuropathy, unspecified (principal); I10 Essential (primary) hypertension; I73.00 Raynaud's syndrome without gangrene; G43.909 Migraine, unspecified, not intractable, without status migrainosus; G47.33 Obstructive sleep apnea (adult) (pediatric); F32.9 Major depressive disorder, single episode, unspecified; I35.9 Nonrheumatic aortic valve disorder, unspecified; G47.00 Insomnia, unspecified; F17.210 Nicotine dependence, cigarettes, uncomplicated; Z79.891 Long term (current) use of opiate analgesic; Z79.82 Long term (current) use of aspirin; Z79.899 Other long term (current) drug therapy; Z88.8 Allergy status to other drugs, medicaments and biological substances; Z91.048 Other nonmedicinal substance allergy status; Z98.1 Arthrodesis status | CPT/HCPCS: G0463 ==

== ENCOUNTER → 2017-09-09 | Outpatient (CLI) | payer MEDICARE, MEDICAID ==
[2017-09-09 13:32] LABS: BASO # 0.1 10^3/uL (0.0-0.2); BASO % 1.6 % (0.0-1.0); EOS # 0.2 10^3/uL (0.0-0.50); EOS % 4.1 % (0.0-3.0); HEMATOCRIT 37.6 % (42.0-52.0); IMMATURE GRANULOCYTE % 0.2 % (0-3.0); LYMPH # 2.5 10^3/uL (1.5-4.5); LYMPH % 51.1 % (24.0-44.0); MEAN CORPUSCULAR HEMOGLOBIN 26.8 pg (27.0-33.0); MEAN CORPUSCULAR HGB CONC 31.9 g/dl (32.0-36.5); MEAN CORPUSCULAR VOLUME 84.1 fl (80.0-96.0); MONO # 0.7 10^3/uL (0.0-0.8); MONO % 13.6 % (0.0-5.0); NEUTROPHILS # 1.4 10^3/uL (1.8-7.7); NEUTROPHILS % 29.4 % (36.0-66.0); PLATELET COUNT, AUTOMATED 177 10^3/uL (150-450); RED BLOOD COUNT 4.47 10^6/uL (4.30-6.10); RED CELL DISTRIBUTION WIDTH 14.6 % (11.5-14.5); WHITE BLOOD COUNT 4.9 10^3/uL (4.0-10.0)
[2017-09-09 14:07] LABS: ANION GAP 7 MEQ/L (8-16); BLOOD UREA NITROGEN 10 MG/DL (7-18); CALCIUM LEVEL 8.4 MG/DL (8.8-10.2); CARBON DIOXIDE LEVEL 28 MEQ/L (21-32); CHLORIDE LEVEL 106 MEQ/L (98-107); CREATININE FOR GFR 0.72 MG/DL (0.70-1.30); GLOMERULAR FILTRATION RATE > 60.0 (>49); GLUCOSE, FASTING 75 MG/DL (70-100); POTASSIUM SERUM 4.1 MEQ/L (3.5-5.1); SODIUM LEVEL 141 MEQ/L (136-145)
== END ==
LOC: M LAB 12:32
DX: T84.223A Displacement of internal fixation device of bones of foot and toes, initial encounter (principal); Y93.9 Activity, unspecified; Y92.9 Unspecified place or not applicable; X58.XXXA Exposure to other specified factors, initial encounter
CPT/HCPCS: 71046

== ENCOUNTER → 2017-09-23 | Day surgery (SDC) | payer MEDICARE, MEDICAID ==
[~2017-09-23] MED LIST changes: +BACITRACIN PWD 50,000 UNITS VIAL As Ordered; +BUPIVACAINE HCL 0.5% 10 ML VIAL As Ordered; -GASTROGRAFIN SOLUTION 30ML (Q9963) As Ordered; -ISOVUE-370 76% 100ML VIAL (Q9967) As Ordered; +LIDOCAINE 2% INJ 100 MG/5 ML SDV (FOR ANES.) As Ordered; +LIDOCAINE 2% MDV 20 ML VIAL As Ordered; +LR 1,000 ML IV; +NEOSPORIN GU IRRIG 20 ML VIAL As Ordered; +PROPOFOL 200 MG/20 ML VIAL As Ordered; +dexameTHASONE 4 MG/ML 1ML VIAL (J1100) As Ordered
[2017-09-23] MEDS: METOPROLOL TART 25 MG TABLET PO ×2 (08:38)
== END | disposition home or self-care (01) ==
LOC: M SDC 07:33
DX: Z53.09 Procedure and treatment not carried out because of other contraindication (principal); R03.0 Elevated blood-pressure reading, without diagnosis of hypertension

== ENCOUNTER → 2017-10-07 | Outpatient (CLI) | payer MEDICARE, MEDICAID | LOC: M RAD 12:54 | DX: L98.499 Non-pressure chronic ulcer of skin of other sites with unspecified severity (principal); I73.1 Thromboangiitis obliterans [Buerger's disease]; Z79.899 Other long term (current) drug therapy | CPT/HCPCS: 73140 ==

== ENCOUNTER → 2017-10-07 | Outpatient (REF) | payer MEDICARE, MEDICAID | LOC: M SFHCPLAZ 16:58 | DX: G89.4 Chronic pain syndrome (principal) | CPT/HCPCS: 80307 ==

== ENCOUNTER → 2017-10-13 | Outpatient (CLI) | payer MEDICARE, MEDICAID ==
[~2017-10-13] MED LIST changes: -BACITRACIN PWD 50,000 UNITS VIAL As Ordered; -BUPIVACAINE HCL 0.5% 10 ML VIAL As Ordered; +ISOVUE-370 76% 100ML VIAL (Q9967) As Ordered; -LIDOCAINE 2% INJ 100 MG/5 ML SDV (FOR ANES.) As Ordered; -LIDOCAINE 2% MDV 20 ML VIAL As Ordered; -LR 1,000 ML IV; -NEOSPORIN GU IRRIG 20 ML VIAL As Ordered; -PROPOFOL 200 MG/20 ML VIAL As Ordered; -dexameTHASONE 4 MG/ML 1ML VIAL (J1100) As Ordered
== END ==
LOC: M RAD 10:42
DX: L98.492 Non-pressure chronic ulcer of skin of other sites with fat layer exposed (principal); I73.1 Thromboangiitis obliterans [Buerger's disease]
CPT/HCPCS: Q9967

== ENCOUNTER 2017-10-25 12:07 | Inpatient (IN) | payer MEDICARE, MEDICAID ==
[2017-10-25] MEDS: MORPHINE 4 MG/ML 1ML VIAL (J2270) IV ×3 (13:00→21:01)
[2017-10-25 13:37] LABS: BASO # 0.1 10^3/uL (0.0-0.2); BASO % 1.1 % (0.0-1.0); EOS # 0.1 10^3/uL (0.0-0.50); EOS % 1.7 % (0.0-3.0); HEMOGLOBIN 11.5 g/dl (14.0-18.0); IMMATURE GRANULOCYTE % 0.2 % (0-3.0); LYMPH # 1.8 10^3/uL (1.5-4.5); LYMPH % 32.7 % (24.0-44.0); MEAN CORPUSCULAR HEMOGLOBIN 26.1 pg (27.0-33.0); MEAN CORPUSCULAR HGB CONC 31.9 g/dl (32.0-36.5); MEAN CORPUSCULAR VOLUME 81.8 fl (80.0-96.0); MONO # 0.6 10^3/uL (0.0-0.8); MONO % 11.4 % (0.0-5.0); NEUTROPHILS # 2.9 10^3/uL (1.8-7.7); NEUTROPHILS % 52.9 % (36.0-66.0); PLATELET COUNT, AUTOMATED 272 10^3/uL (150-450); WHITE BLOOD COUNT 5.4 10^3/uL (4.0-10.0)
[2017-10-25 14:10] LABS: ANION GAP 8 MEQ/L (8-16); BLOOD UREA NITROGEN 10 MG/DL (7-18); C REACTIVE PROTEIN QUANTITATIV 5.43 MG/DL (0.00-0.30); CALCIUM LEVEL 8.4 MG/DL (8.8-10.2); CARBON DIOXIDE LEVEL 26 MEQ/L (21-32); CHLORIDE LEVEL 97 MEQ/L (98-107); CREATININE FOR GFR 0.75 MG/DL (0.70-1.30); GLOMERULAR FILTRATION RATE > 60.0 (>49); GLUCOSE, FASTING 86 MG/DL (70-100); POTASSIUM SERUM 4.1 MEQ/L (3.5-5.1); SODIUM LEVEL 131 MEQ/L (136-145)
[2017-10-25 14:11] LABS: LACTIC ACID SEPSIS PROTOCOL 0.9 MMOL/L (0.4-2.0)
[2017-10-25] MEDS ORDERED: ISOVUE-370 76% 100ML VIAL (Q9967) As Ordered (14:18)
[2017-10-25] MEDS: PERCOCET 5MG/325MG TAB PO ×3 (14:23→23:04)
[2017-10-25 14:30] LABS: ERYTHROCYTE SEDIMENTATION RATE 89 mm/hr (0-20)
[2017-10-25] MEDS: NS 1,000 ML IV (15:00)
[2017-10-25] MEDS: CLINDAMYCIN 900 MG in APPROPRIATE DILUENT 1 EA IV (15:35)
[2017-10-25] MEDS ORDERED: NORCO, ANEXSIA 5/325MG TABLET (HYDROcodone/ACETAMINOPHEN) PO (17:15)
[2017-10-25] MEDS: CitaloPRAM (CeleXA) 20 MG TAB PO (19:01)
[2017-10-25] MEDS: DOCUSATE SODIUM 100 MG CAP PO (19:01)
[2017-10-25] MEDS: OMEPRAZOLE 20 MG CAP PO (19:01)
[2017-10-25] MEDS: MULTIVITAMINS/MINERALS THERAP 1 TAB PO (19:01)
[2017-10-25] MEDS: amLODIPine 10 MG TAB PO (19:02)
[2017-10-25] MEDS: DULoxetine 30 MG CAP (CYMBALTA) PO (19:02)
[2017-10-25] MEDS ORDERED: PILL CUTTER/CRUSHER XX (19:15)
[2017-10-25] MEDS: PENTOXIFYLLINE 400 MG TAB PO (19:29)
[2017-10-25] MEDS: FERROUS GLUCONATE 324 MG TAB PO (19:29)
[2017-10-25] MEDS: VARENICLINE 1 MG TABLET PO (20:20)
[2017-10-25] MEDS: GABAPENTIN 400 MG CAP PO (20:20)
[2017-10-25] MEDS: LISINOPRIL 10 MG TAB PO (20:21)
[2017-10-25] MEDS: SIMVASTATIN 20 MG TAB PO (20:21)
[2017-10-25] MEDS: zolPIDEM TARTRATE 5 MG TAB PO (20:22)
[2017-10-26] MEDS: MORPHINE 4 MG/ML 1ML VIAL (J2270) IV ×6 (01:26→20:21)
[2017-10-26 06:10] LABS: BASO # 0.1 10^3/uL (0.0-0.2); BASO % 1.1 % (0.0-1.0); EOS # 0.1 10^3/uL (0.0-0.50); EOS % 1.4 % (0.0-3.0); HEMATOCRIT 35.1 % (42.0-52.0); HEMOGLOBIN 11.4 g/dl (14.0-18.0); IMMATURE GRANULOCYTE % 0.5 % (0-3.0); LYMPH % 21.8 % (24.0-44.0); MEAN CORPUSCULAR HEMOGLOBIN 26.4 pg (27.0-33.0); MEAN CORPUSCULAR HGB CONC 32.5 g/dl (32.0-36.5); MEAN CORPUSCULAR VOLUME 81.3 fl (80.0-96.0); MONO # 0.4 10^3/uL (0.0-0.8); MONO % 9.9 % (0.0-5.0); NEUTROPHILS # 2.8 10^3/uL (1.8-7.7); NEUTROPHILS % 65.3 % (36.0-66.0); PLATELET COUNT, AUTOMATED 261 10^3/uL (150-450); RED BLOOD COUNT 4.32 10^6/uL (4.30-6.10); WHITE BLOOD COUNT 4.4 10^3/uL (4.0-10.0)
[2017-10-26 06:35] LABS: ERYTHROCYTE SEDIMENTATION RATE 78 mm/hr (0-20)
[2017-10-26 06:44] LABS: ANION GAP 7 MEQ/L (8-16); BLOOD UREA NITROGEN 10 MG/DL (7-18); C REACTIVE PROTEIN QUANTITATIV 6.14 MG/DL (0.00-0.30); CALCIUM LEVEL 8.2 MG/DL (8.8-10.2); CARBON DIOXIDE LEVEL 24 MEQ/L (21-32); CHLORIDE LEVEL 101 MEQ/L (98-107); CREATININE FOR GFR 0.59 MG/DL (0.70-1.30); GLOMERULAR FILTRATION RATE > 60.0 (>49); GLUCOSE, FASTING 88 MG/DL (70-100); POTASSIUM SERUM 4.1 MEQ/L (3.5-5.1); SODIUM LEVEL 132 MEQ/L (136-145)
[2017-10-26] MEDS: PERCOCET 5MG/325MG TAB PO ×2 (07:02→14:19)
[2017-10-26] MEDS: CitaloPRAM (CeleXA) 20 MG TAB PO (08:27)
[2017-10-26] MEDS: VARENICLINE 1 MG TABLET PO ×2 (08:27→20:10)
[2017-10-26] MEDS: amLODIPine 10 MG TAB PO (08:28)
[2017-10-26] MEDS: FERROUS GLUCONATE 324 MG TAB PO (08:28)
[2017-10-26] MEDS: DULoxetine 30 MG CAP (CYMBALTA) PO (08:28)
[2017-10-26] MEDS: PENTOXIFYLLINE 400 MG TAB PO ×2 (08:28→17:29)
[2017-10-26] MEDS: MULTIVITAMINS/MINERALS THERAP 1 TAB PO (08:28)
[2017-10-26] MEDS: ASPIRIN 81 MG ENTERIC TAB PO (08:28)
[2017-10-26] MEDS: LISINOPRIL 10 MG TAB PO ×2 (08:29→20:24)
[2017-10-26] MEDS: OMEPRAZOLE 20 MG CAP PO (08:29)
[2017-10-26] MEDS: GABAPENTIN 400 MG CAP PO ×2 (08:29→20:10)
[2017-10-26] MEDS: ONDANSETRON 4MG/2ML VIAL (J2405) IV (10:10)
[2017-10-26] MEDS: VANCOMYCIN HCL 1,000 MG, VIAL MATE ADAPTER 1 EACH in D5W 250 ML IV (12:24)
[2017-10-26] MEDS: VANCOMYCIN HCL 500 MG in D5W MINI-BAG PLUS 100 ML IV (14:28)
[2017-10-26] MEDS: PIPERACILLIN/TAZOBACTAM SOD 3.375 GM in APPROPRIATE DILUENT 1 EA IV ×2 (16:02→20:09)
[2017-10-26] MEDS: LACTULOSE 20 GM/30 ML SYRUP UD PO (20:10)
[2017-10-26] MEDS: SIMVASTATIN 20 MG TAB PO (20:10)
[2017-10-26] MEDS: SENOKOT S TAB PO (20:37)
[2017-10-27] MEDS: VANCOMYCIN HCL 1,000 MG, VIAL MATE ADAPTER 1 EACH in D5W 250 ML IV (00:57)
[2017-10-27] MEDS: MORPHINE 4 MG/ML 1ML VIAL (J2270) IV ×8 (01:01→20:29)
[2017-10-27] MEDS: PIPERACILLIN/TAZOBACTAM SOD 3.375 GM in APPROPRIATE DILUENT 1 EA IV ×3 (03:55→20:31)
[2017-10-27 07:25] LABS: BASO % 0.7 % (0.0-1.0); EOS # 0.1 10^3/uL (0.0-0.50); EOS % 1.7 % (0.0-3.0); HEMATOCRIT 34.7 % (42.0-52.0); HEMOGLOBIN 11.2 g/dl (14.0-18.0); IMMATURE GRANULOCYTE % 0.5 % (0-3.0); LYMPH # 1.5 10^3/uL (1.5-4.5); LYMPH % 24.8 % (24.0-44.0); MEAN CORPUSCULAR HEMOGLOBIN 26.3 pg (27.0-33.0); MEAN CORPUSCULAR HGB CONC 32.3 g/dl (32.0-36.5); MEAN CORPUSCULAR VOLUME 81.5 fl (80.0-96.0); MONO # 0.6 10^3/uL (0.0-0.8); NEUTROPHILS # 3.8 10^3/uL (1.8-7.7); NEUTROPHILS % 62.3 % (36.0-66.0); PLATELET COUNT, AUTOMATED 263 10^3/uL (150-450); RED BLOOD COUNT 4.26 10^6/uL (4.30-6.10); RED CELL DISTRIBUTION WIDTH 13.9 % (11.5-14.5)
[2017-10-27 07:44] LABS: ANION GAP 5 MEQ/L (8-16); BLOOD UREA NITROGEN 14 MG/DL (7-18); CALCIUM LEVEL 8.2 MG/DL (8.8-10.2); CARBON DIOXIDE LEVEL 26 MEQ/L (21-32); CHLORIDE LEVEL 102 MEQ/L (98-107); CREATININE FOR GFR 0.67 MG/DL (0.70-1.30); GLOMERULAR FILTRATION RATE > 60.0 (>49); GLUCOSE, FASTING 85 MG/DL (70-100); SODIUM LEVEL 133 MEQ/L (136-145)
[2017-10-27 08:24] LABS: C REACTIVE PROTEIN QUANTITATIV 5.28 MG/DL (0.00-0.30)
[2017-10-27] MEDS: ASPIRIN 81 MG ENTERIC TAB PO (08:31)
[2017-10-27] MEDS: amLODIPine 10 MG TAB PO (08:31)
[2017-10-27] MEDS: CitaloPRAM (CeleXA) 20 MG TAB PO (08:31)
[2017-10-27] MEDS: LISINOPRIL 10 MG TAB PO ×2 (08:31→20:30)
[2017-10-27] MEDS: LACTULOSE 20 GM/30 ML SYRUP UD PO ×2 (08:31→20:29)
[2017-10-27] MEDS: FERROUS GLUCONATE 324 MG TAB PO (08:31)
[2017-10-27] MEDS: DULoxetine 30 MG CAP (CYMBALTA) PO (08:32)
[2017-10-27] MEDS: PENTOXIFYLLINE 400 MG TAB PO ×2 (08:32→18:09)
[2017-10-27] MEDS: GABAPENTIN 400 MG CAP PO ×2 (08:32→20:29)
[2017-10-27] MEDS: OMEPRAZOLE 20 MG CAP PO (08:32)
[2017-10-27] MEDS: MULTIVITAMINS/MINERALS THERAP 1 TAB PO (08:32)
[2017-10-27] MEDS: VARENICLINE 1 MG TABLET PO ×2 (08:32→21:00)
[2017-10-27] MEDS: PERCOCET 5MG/325MG TAB PO ×3 (08:33→22:39)
[2017-10-27] MEDS: SANTYL OINT 30GM TOP (18:59)
[2017-10-27] MEDS: SIMVASTATIN 20 MG TAB PO (20:30)
[2017-10-28] MEDS: PIPERACILLIN/TAZOBACTAM SOD 3.375 GM in APPROPRIATE DILUENT 1 EA IV ×2 (03:05→11:15)
[2017-10-28] MEDS: MORPHINE 4 MG/ML 1ML VIAL (J2270) IV (03:06)
[2017-10-28] MEDS: PERCOCET 5MG/325MG TAB PO ×2 (06:19→10:55)
[2017-10-28 06:28] LABS: BASO % 0.7 % (0.0-1.0); EOS # 0.2 10^3/uL (0.0-0.50); EOS % 3.4 % (0.0-3.0); HEMATOCRIT 33.6 % (42.0-52.0); HEMOGLOBIN 10.7 g/dl (13.5-17.5); IMMATURE GRANULOCYTE % 0.7 % (0-3.0); LYMPH # 1.7 10^3/uL (1.5-4.5); MEAN CORPUSCULAR HEMOGLOBIN 25.8 pg (27.0-33.0); MEAN CORPUSCULAR HGB CONC 31.8 g/dl (32.0-36.5); MEAN CORPUSCULAR VOLUME 81.2 fl (80.0-96.0); MONO # 0.6 10^3/uL (0.0-0.8); MONO % 10.3 % (0.0-5.0); NEUTROPHILS # 3.2 10^3/uL (1.8-7.7); NEUTROPHILS % 55.9 % (36.0-66.0); PLATELET COUNT, AUTOMATED 296 10^3/uL (150-450); RED BLOOD COUNT 4.14 10^6/uL (4.30-6.10); RED CELL DISTRIBUTION WIDTH 13.8 % (11.5-14.5); WHITE BLOOD COUNT 5.8 10^3/uL (4.0-10.0)
[2017-10-28 06:36] LABS: ANION GAP 7 MEQ/L (8-16); BLOOD UREA NITROGEN 13 MG/DL (7-18); CALCIUM LEVEL 8.2 MG/DL (8.8-10.2); CARBON DIOXIDE LEVEL 25 MEQ/L (21-32); CHLORIDE LEVEL 104 MEQ/L (98-107); CREATININE FOR GFR 0.63 MG/DL (0.70-1.30); GLOMERULAR FILTRATION RATE > 60.0 (>49); GLUCOSE, FASTING 79 MG/DL (70-100); POTASSIUM SERUM 3.8 MEQ/L (3.5-5.1); SODIUM LEVEL 136 MEQ/L (136-145)
[2017-10-28] MEDS: ASPIRIN 81 MG ENTERIC TAB PO (08:42)
[2017-10-28] MEDS: FERROUS GLUCONATE 324 MG TAB PO (08:42)
[2017-10-28] MEDS: OMEPRAZOLE 20 MG CAP PO (08:42)
[2017-10-28] MEDS: CitaloPRAM (CeleXA) 20 MG TAB PO (08:42)
[2017-10-28] MEDS: VARENICLINE 1 MG TABLET PO ×2 (08:42→21:07)
[2017-10-28] MEDS: DULoxetine 30 MG CAP (CYMBALTA) PO (08:42)
[2017-10-28] MEDS: LACTULOSE 20 GM/30 ML SYRUP UD PO ×2 (08:42→21:00)
[2017-10-28] MEDS: GABAPENTIN 400 MG CAP PO ×2 (08:42→21:07)
[2017-10-28] MEDS: MULTIVITAMINS/MINERALS THERAP 1 TAB PO (08:42)
[2017-10-28] MEDS: PENTOXIFYLLINE 400 MG TAB PO ×2 (08:42→17:03)
[2017-10-28] MEDS: LISINOPRIL 10 MG TAB PO ×2 (08:43→21:07)
[2017-10-28] MEDS: amLODIPine 10 MG TAB PO (08:43)
[2017-10-28] MEDS: SANTYL OINT 30GM TOP (08:44)
[2017-10-28] MEDS: LevoFLOXacin 750 MG TABLET PO (12:37)
[2017-10-28] MEDS: CEPHALEXIN 500 MG CAP PO ×3 (12:37→23:04)
[2017-10-28] MEDS: ANEXSIA, NORCO 7.5MG/325MG TABLET(HYDROCODONE/APAP) PO ×2 (14:35→21:07)
[2017-10-28 14:40] LABS: ALBUMIN 2.7 GM/DL (3.2-5.2)
[2017-10-28 14:40] LABS: MAGNESIUM LEVEL 2.1 MG/DL (1.8-2.4)
[2017-10-28] MEDS: IBUPROFEN 400 MG TAB PO (19:55)
[2017-10-28] MEDS: SIMVASTATIN 20 MG TAB PO (21:07)
[2017-10-29] MEDS: MORPHINE 4 MG/ML 1ML VIAL (J2270) IV (00:11)
[2017-10-29] MEDS: IBUPROFEN 400 MG TAB PO ×2 (02:04→08:14)
[2017-10-29] MEDS: ANEXSIA, NORCO 7.5MG/325MG TABLET(HYDROCODONE/APAP) PO (04:05)
[2017-10-29] MEDS: CEPHALEXIN 500 MG CAP PO ×2 (05:15→11:55)
[2017-10-29] MEDS: LevoFLOXacin 750 MG TABLET PO (05:15)
[2017-10-29 06:16] LABS: BASO # 0.1 10^3/uL (0.0-0.2); EOS # 0.2 10^3/uL (0.0-0.50); EOS % 3.8 % (0.0-3.0); HEMATOCRIT 34.7 % (42.0-52.0); HEMOGLOBIN 11.2 g/dl (13.5-17.5); IMMATURE GRANULOCYTE % 0.8 % (0-3.0); LYMPH # 1.5 10^3/uL (1.5-4.5); LYMPH % 29.7 % (24.0-44.0); MEAN CORPUSCULAR HEMOGLOBIN 25.7 pg (27.0-33.0); MEAN CORPUSCULAR HGB CONC 32.3 g/dl (32.0-36.5); MEAN CORPUSCULAR VOLUME 79.6 fl (80.0-96.0); MONO # 0.5 10^3/uL (0.0-0.8); MONO % 10.6 % (0.0-5.0); NEUTROPHILS # 2.7 10^3/uL (1.8-7.7); NEUTROPHILS % 54.1 % (36.0-66.0); PLATELET COUNT, AUTOMATED 319 10^3/uL (150-450); RED BLOOD COUNT 4.36 10^6/uL (4.30-6.10); RED CELL DISTRIBUTION WIDTH 13.6 % (11.5-14.5)
[2017-10-29 06:35] LABS: ANION GAP 7 MEQ/L (8-16); BLOOD UREA NITROGEN 10 MG/DL (7-18); CALCIUM LEVEL 8.6 MG/DL (8.8-10.2); CARBON DIOXIDE LEVEL 24 MEQ/L (21-32); CHLORIDE LEVEL 103 MEQ/L (98-107); CREATININE FOR GFR 0.53 MG/DL (0.70-1.30); GLOMERULAR FILTRATION RATE > 60.0 (>49); GLUCOSE, FASTING 80 MG/DL (70-100); POTASSIUM SERUM 3.6 MEQ/L (3.5-5.1); SODIUM LEVEL 134 MEQ/L (136-145)
[2017-10-29] MEDS: VARENICLINE 1 MG TABLET PO (08:14)
[2017-10-29] MEDS: DULoxetine 30 MG CAP (CYMBALTA) PO (08:14)
[2017-10-29] MEDS: GABAPENTIN 400 MG CAP PO (08:14)
[2017-10-29] MEDS: CitaloPRAM (CeleXA) 20 MG TAB PO (08:14)
[2017-10-29] MEDS: PENTOXIFYLLINE 400 MG TAB PO (08:14)
[2017-10-29] MEDS: LISINOPRIL 10 MG TAB PO (08:15)
[2017-10-29] MEDS: amLODIPine 10 MG TAB PO (08:15)
[2017-10-29] MEDS: OMEPRAZOLE 20 MG CAP PO (08:15)
[2017-10-29] MEDS: FERROUS GLUCONATE 324 MG TAB PO (08:15)
[2017-10-29] MEDS: MULTIVITAMINS/MINERALS THERAP 1 TAB PO (08:15)
[2017-10-29] MEDS: ASPIRIN 81 MG ENTERIC TAB PO (08:15)
[2017-10-29] MEDS: SANTYL OINT 30GM TOP (08:16)
[2017-10-29] MEDS: LACTULOSE 20 GM/30 ML SYRUP UD PO (08:17)
[2017-10-29] MEDS: NORCO, ANEXSIA 5/325MG TABLET (HYDROcodone/ACETAMINOPHEN) PO (09:46)
== END 2017-10-29 14:15 | disposition home or self-care (01) | DRG 541 ==
LOC: M MSPAV 10-26 01:07 → M ED 12:07 → M ED INP 16:55
DX: M86.141 Other acute osteomyelitis, right hand (principal); I73.1 Thromboangiitis obliterans [Buerger's disease]; F32.9 Major depressive disorder, single episode, unspecified; I10 Essential (primary) hypertension; E78.5 Hyperlipidemia, unspecified; G89.29 Other chronic pain; F17.210 Nicotine dependence, cigarettes, uncomplicated; N40.0 Benign prostatic hyperplasia without lower urinary tract symptoms; Z79.82 Long term (current) use of aspirin; Z79.899 Other long term (current) drug therapy; Z88.8 Allergy status to other drugs, medicaments and biological substances; Z89.021 Acquired absence of right finger(s); Z89.022 Acquired absence of left finger(s); B96.5 Pseudomonas (aeruginosa) (mallei) (pseudomallei) as the cause of diseases classified elsewhere; B95.62 Methicillin resistant Staphylococcus aureus infection as the cause of diseases classified elsewhere

== ENCOUNTER → 2017-11-22 | Outpatient (REF) | payer MEDICARE, MEDICAID ==
[2017-11-27 00:06] LABS: AMPHETAMINE SCREEN, URINE Negative ng/mL (Cutoff=1000); BARBITURATES SCREEN, URINE Negative ng/mL (Cutoff=200); BENZODIAZEPINES, URINE SCREEN Negative ng/mL (Cutoff=200); CANNABINOID SCREEN, URINE Negative ng/mL (Cutoff=20); COCAINE SCREEN, URINE Negative ng/mL (Cutoff=300); CREATININE, URINE 153.7 mg/dL (20.0-300.0); FENTANYL URINE SCREEN Negative pg/mL (Cutoff=2000); METHADONE, URINE SCREEN Negative ng/mL (Cutoff=300); OPIATE SCREEN, URINE See Final Results ng/mL (Cutoff=300); OPIATES, URINE Negative ng/mL (Cutoff=300); OXYCODONE URINE Negative (Cutoff=100); OXYCODONE, SCREEN, URINE See Final Results ng/mL (Cutoff=100); OXYCODONE/OXYMORPH, URINE Positive (Cutoff=100); OXYMORPHONE, URINE Positive (.); OXYMORPHONE, URINE CONFIRM 169 ng/mL (Cutoff=100); PCP SCREEN, URINE Negative ng/mL (Cutoff=25); SPECIFIC GRAVITY, URINE 1.018 (.); pH, URINE 4.9 (4.5-8.9)
== END ==
LOC: M SFHCPLAZ 11:05
DX: G89.4 Chronic pain syndrome (principal); M79.641 Pain in right hand; Z89.021 Acquired absence of right finger(s)
CPT/HCPCS: 80307

== ENCOUNTER → 2017-12-09 | Outpatient (CLI) | payer MEDICARE, MEDICAID ==
[2017-12-09 16:03] LABS: BASO % 0.8 % (0.0-1.0); EOS # 0.2 10^3/uL (0.0-0.50); EOS % 6.3 % (0.0-3.0); HEMATOCRIT 30.8 % (42.0-52.0); HEMOGLOBIN 9.8 g/dl (13.5-17.5); IMMATURE GRANULOCYTE % 0.3 % (0-3.0); LYMPH # 1.9 10^3/uL (1.5-4.5); LYMPH % 49.3 % (24.0-44.0); MEAN CORPUSCULAR HEMOGLOBIN 25.9 pg (27.0-33.0); MEAN CORPUSCULAR HGB CONC 31.8 g/dl (32.0-36.5); MEAN CORPUSCULAR VOLUME 81.3 fl (80.0-96.0); MONO # 0.7 10^3/uL (0.0-0.8); MONO % 17.5 % (0.0-5.0); NEUTROPHILS % 25.8 % (36.0-66.0); PLATELET COUNT, AUTOMATED 202 10^3/uL (150-450); RED BLOOD COUNT 3.79 10^6/uL (4.30-6.10); RED CELL DISTRIBUTION WIDTH 14.8 % (11.5-14.5); WHITE BLOOD COUNT 3.8 10^3/uL (4.0-10.0)
[2017-12-09 16:43] LABS: ALBUMIN 3.1 GM/DL (3.2-5.2); ALBUMIN/GLOBULIN RATIO 0.86 (1.00-1.93); ALKALINE PHOSPHATASE 50 U/L (45-117); ALT/SGPT 16 U/L (12-78); ANION GAP 5 MEQ/L (8-16); AST/SGOT 19 U/L (7-37); BILIRUBIN,TOTAL 0.4 MG/DL (0.2-1.0); BLOOD UREA NITROGEN 9 MG/DL (7-18); CARBON DIOXIDE LEVEL 27 MEQ/L (21-32); CHLORIDE LEVEL 105 MEQ/L (98-107); CREATININE FOR GFR 0.62 MG/DL (0.70-1.30); GLOMERULAR FILTRATION RATE > 60.0 (>49); GLUCOSE, FASTING 86 MG/DL (70-100); POTASSIUM SERUM 3.8 MEQ/L (3.5-5.1); SODIUM LEVEL 137 MEQ/L (136-145); TOTAL PROTEIN 6.7 GM/DL (6.4-8.2)
[2017-12-09 16:45] LABS: ERYTHROCYTE SEDIMENTATION RATE 58 mm/hr (0-20)
[2017-12-09 17:22] LABS: POSITIVE DIFF POS FLAG
[2017-12-12 09:56] LABS: HEPATITIS C VIRUS ABY INDEX > 11.0 INDEX (<0.8)
[2017-12-16 00:07] LABS: HCV RNA NAA QUALITATIVE Negative (Negative)
== END ==
LOC: M LAB 15:29
DX: N13.5 Crossing vessel and stricture of ureter without hydronephrosis (principal); R76.8 Other specified abnormal immunological findings in serum; R63.4 Abnormal weight loss
CPT/HCPCS: 84443

== ENCOUNTER → 2017-12-23 | Outpatient (REF) | payer MEDICARE, MEDICAID | LOC: M SFHCPLAZ 16:12 | DX: D64.9 Anemia, unspecified (principal); Z53.8 Procedure and treatment not carried out for other reasons ==

== ENCOUNTER → 2017-12-31 | Outpatient (CLI) | payer MEDICARE, MEDICAID ==
[2017-12-31 11:19] LABS: HEMATOCRIT 35.2 % (42.0-52.0); MEAN CORPUSCULAR HEMOGLOBIN 25.5 pg (27.0-33.0); MEAN CORPUSCULAR HGB CONC 31.3 g/dl (32.0-36.5); MEAN CORPUSCULAR VOLUME 81.5 fl (80.0-96.0); PLATELET COUNT, AUTOMATED 186 10^3/uL (150-450); RED BLOOD COUNT 4.32 10^6/uL (4.30-6.10); RED CELL DISTRIBUTION WIDTH 15.6 % (11.5-14.5); RETIC HEMOGLOBIN EQUIVALENT 26.3 pg (24-36); RETICULOCYTE % 1.1 % (0.5-1.5); WHITE BLOOD COUNT 3.6 10^3/uL (4.0-10.0)
[2017-12-31 11:28] LABS: REASON FOR REVIEW ANEMIA / RBC MORPH; SLIDE REVIEW Report; SOURCE PERIPHERAL SMEAR
[2017-12-31 11:40] LABS: AMORPHOUS SEDIMENT SMALL (NEGATIVE); APPEARANCE, URINE HAZY (CLEAR); BACTERIA, URINE AUTO NEGATIVE (NEGATIVE); BILIRUBIN, URINE AUTO NEGATIVE (NEGATIVE); BLOOD, URINE BLOOD 2+ (NEGATIVE); COLOR, URINE AMBER (YELLOW); GLUCOSE, URINE (UA) AUTO NEGATIVE (NEGATIVE); GRANULAR CAST, URINE AUTO 5 /LPF; KETONE, URINE AUTO NEGATIVE (NEGATIVE); LEUKOCYTE ESTERASE, URINE AUTO NEGATIVE (NEGATIVE); MUCUS, URINE SMALL (NEGATIVE); NITRITE, URINE AUTO NEGATIVE (NEGATIVE); PROTEIN, URINE AUTO 3+ mg/dL (NEGATIVE); RBC, URINE AUTO 25 /HPF (0-3); SPECIFIC GRAVITY URINE AUTO 1.017 (1.002-1.035); SQUAMOUS EPITHELIAL CELL UR AU 0 /HPF (0-6); WBC, URINE AUTO 8 /HPF (0-3)
[2017-12-31 11:44] LABS: IRON (FE) 22 UG/DL (65-175); PERCENT SATURATION 13.1 % (19.7-50.0); TOTAL IRON BINDING CAPACITY 168 UG/DL (250-450)
[2018-01-02 10:32] LABS: VITAMIN B12 LEVEL 277 PG/ML (247-911)
[2018-01-03 08:06] LABS: TRANSFERRIN 147 mg/dL (200-370)
== END ==
LOC: M LAB 10:43
DX: D50.9 Iron deficiency anemia, unspecified (principal)
CPT/HCPCS: 83550

== ENCOUNTER → 2017-12-31 | Outpatient (CLI) | payer MEDICARE, MEDICAID ==
[2017-12-31 11:20] LABS: BASO % 0.9 % (0.0-1.0); EOS # 0.1 10^3/uL (0.0-0.50); EOS % 2.7 % (0.0-3.0); HEMATOCRIT 35.1 % (42.0-52.0); IMMATURE GRANULOCYTE % 0.6 % (0-3.0); LYMPH # 1.1 10^3/uL (1.5-4.5); LYMPH % 33.8 % (24.0-44.0); MEAN CORPUSCULAR HEMOGLOBIN 25.4 pg (27.0-33.0); MEAN CORPUSCULAR HGB CONC 31.3 g/dl (32.0-36.5); MEAN CORPUSCULAR VOLUME 81.1 fl (80.0-96.0); MONO # 0.4 10^3/uL (0.0-0.8); MONO % 10.7 % (0.0-5.0); NEUTROPHILS # 1.7 10^3/uL (1.8-7.7); NEUTROPHILS % 51.3 % (36.0-66.0); PLATELET COUNT, AUTOMATED 198 10^3/uL (150-450); RED BLOOD COUNT 4.33 10^6/uL (4.30-6.10); RED CELL DISTRIBUTION WIDTH 15.5 % (11.5-14.5); WHITE BLOOD COUNT 3.4 10^3/uL (4.0-10.0)
== END ==
LOC: M LAB 10:35
DX: D64.9 Anemia, unspecified (principal)

== ENCOUNTER → 2018-02-10 | Outpatient (REF) | payer MEDICARE, MEDICAID ==
[2018-02-10 18:02] LABS: HEMATOCRIT 30.1 % (42.0-52.0); HEMOGLOBIN 9.5 g/dl (13.5-17.5); MEAN CORPUSCULAR HEMOGLOBIN 25.2 pg (27.0-33.0); MEAN CORPUSCULAR HGB CONC 31.6 g/dl (32.0-36.5); MEAN CORPUSCULAR VOLUME 79.8 fl (80.0-96.0); PLATELET COUNT, AUTOMATED 144 10^3/uL (150-450); RED BLOOD COUNT 3.77 10^6/uL (4.30-6.10); RED CELL DISTRIBUTION WIDTH 15.8 % (11.5-14.5); WHITE BLOOD COUNT 4.4 10^3/uL (4.0-10.0)
[2018-02-10 18:27] LABS: TOTAL PROTEIN 7.2 GM/DL (6.4-8.2)
[2018-02-11 21:26] LABS: URINE TOTAL PROTEIN 603.3 MG/DL (0-12)
[2018-02-13 15:03] LABS: ALBUMIN 3.42 GM/DL (3.29-5.55); ALBUMIN % 47.5 % (55.8-66.1); ALPHA-1-GLOBULIN % 5.8 % (2.9-4.9); ALPHA-1-GLOBULINS 0.42 GM/DL (0.17-0.41); ALPHA-2-GLOBULINS 1.04 GM/DL (0.42-0.99); ALPHA-2-GLOBULINS % 14.5 % (7.1-11.8); BETA-1-GLOBULINS 0.38 GM/DL (0.28-0.60); BETA-1-GLOBULINS % 5.3 % (4.7-7.2); BETA-2-GLOBULINS 0.51 GM/DL (0.19-0.55); BETA-2-GLOBULINS % 7.1 % (3.2-6.5); GAMMA GLOBULIN % 19.8 % (11.1-18.8); GAMMA GLOBULINS 1.43 GM/DL (0.65-1.58)
[2018-02-15 15:05] LABS: UPEP INTERPRETATION NO M-SPIKE NOTED; URINE VOLUME RANDOM ML
[2018-02-16 14:40] LABS: AMPHETAMINE SCREEN, URINE Negative ng/mL (Cutoff=1000); BARBITURATES SCREEN, URINE Negative ng/mL (Cutoff=200); BENZODIAZEPINES, URINE SCREEN Negative ng/mL (Cutoff=200); CANNABINOID SCREEN, URINE Negative ng/mL (Cutoff=20); COCAINE SCREEN, URINE Negative ng/mL (Cutoff=300); FENTANYL URINE SCREEN Negative pg/mL (Cutoff=2000); METHADONE, URINE SCREEN Negative ng/mL (Cutoff=300); OPIATE SCREEN, URINE Negative ng/mL (Cutoff=300); OXYCODONE, SCREEN, URINE Negative ng/mL (Cutoff=100); PCP SCREEN, URINE Negative ng/mL (Cutoff=25); SPECIFIC GRAVITY, URINE 1.017 (.); pH, URINE 5.1 (4.5-8.9)
== END ==
LOC: M SFHCPLAZ 15:46
DX: D61.818 Other pancytopenia (principal); R52 Pain, unspecified; D72.821 Monocytosis (symptomatic); R80.9 Proteinuria, unspecified; Z91.14 Patient's other noncompliance with medication regimen; Z79.891 Long term (current) use of opiate analgesic; Z79.899 Other long term (current) drug therapy
CPT/HCPCS: 84165

== ENCOUNTER 2018-03-02 04:27 | Inpatient (IN) | payer MEDICARE, MEDICAID ==
[2018-03-02] MEDS ORDERED: NS 1,000 ML IV ×2 (05:10)
[2018-03-02] MEDS: cloNIDine 0.2 MG TAB PO ×6 (06:00→18:00)
[2018-03-02] MEDS: MORPHINE 4 MG/ML 1ML VIAL/SYRINGE (J2270) IV ×12 (06:30→21:58)
[2018-03-02] MEDS: hydrALAZINE INJ 20 MG/ML VIAL IV ×6 (06:31→18:25)
[2018-03-02] MEDS: diltiaZEM **CD** 180 MG CAP PO ×2 (06:31)
[2018-03-02 06:48] LABS: HEMOGLOBIN 9.3 g/dl (13.5-17.5); MEAN CORPUSCULAR HEMOGLOBIN 24.7 pg (27.0-33.0); MEAN CORPUSCULAR VOLUME 79.6 fl (80.0-96.0); PLATELET COUNT, AUTOMATED 118 10^3/uL (150-450); RED BLOOD COUNT 3.77 10^6/uL (4.30-6.10); RED CELL DISTRIBUTION WIDTH 15.8 % (11.5-14.5); WHITE BLOOD COUNT 5.4 10^3/uL (4.0-10.0)
[2018-03-02 07:05] LABS: ANION GAP 7 MEQ/L (8-16); BLOOD UREA NITROGEN 41 MG/DL (7-18); CALCIUM LEVEL 8.2 MG/DL (8.8-10.2); CARBON DIOXIDE LEVEL 25 MEQ/L (21-32); CHLORIDE LEVEL 110 MEQ/L (98-107); CPK CREATINE PHOSPHOKINASE 137 U/L (39-308); CREATININE FOR GFR 2.41 MG/DL (0.70-1.30); GLOMERULAR FILTRATION RATE 35.5 (>49); GLUCOSE, FASTING 84 MG/DL (70-100); POTASSIUM SERUM 4.9 MEQ/L (3.5-5.1); SODIUM LEVEL 142 MEQ/L (136-145); TROPONIN I 0.07 NG/ML (< 0.10)
[2018-03-02 07:06] LABS: CK-MB VALUE MASS 5.5 NG/ML (<3.6); MB/CK RELATIVE INDEX 4.01 (< OR =4)
[2018-03-02 07:15] LABS: ESTIMATED AVERAGE GLUCOSE 105 MG/DL (60-110); HEMOGLOBIN A1c 5.3 %
[2018-03-02] MEDS: LABETALOL 200 MG TAB PO ×6 (08:22→21:59)
[2018-03-02] MEDS: HEPARIN SOD (PORCINE) 5000 UNITS/ML VIAL SC ×6 (08:23→21:59)
[2018-03-02] MEDS ORDERED: PILL CRUSHER/CUTTER 1 EACH XX ×2 (08:45)
[2018-03-02 08:58] LABS: BEDSIDE GLUCOSE 43 MG/DL (80-115)
[2018-03-02] MEDS ORDERED: GLUCOSE 4 GM CHEW TABLET As Ordered ×2 (09:09)
[2018-03-02] MEDS: ASPIRIN 81 MG ENTERIC TAB PO ×2 (09:14)
[2018-03-02] MEDS ORDERED: GLUCAGON FOR INJ 1 MG VIAL (J1610) SC ×2 (09:15)
[2018-03-02] MEDS: FERROUS GLUCONATE 324 MG TAB PO ×2 (09:23)
[2018-03-02] MEDS: D5W/0.45% SODIUM CHLORIDE 1,000 ML IV ×4 (09:24→19:31)
[2018-03-02] MEDS: GLUCOSE 4 GM CHEW TABLET PO ×2 (09:24)
[2018-03-02 10:19] LABS: BEDSIDE GLUCOSE 73 MG/DL (80-115)
[2018-03-02 12:06] LABS: BEDSIDE GLUCOSE 92 MG/DL (80-115)
[2018-03-02 14:38] LABS: TROPONIN I 0.06 NG/ML (< 0.10)
[2018-03-02 14:40] LABS: CK-MB VALUE MASS 4.7 NG/ML (<3.6); CPK CREATINE PHOSPHOKINASE 101 U/L (39-308); MB/CK RELATIVE INDEX 4.65 (< OR =4)
[2018-03-02] MEDS: PANTOPRAZOLE 40MG INJ (PROTONIX) (C9113) IV ×2 (15:15)
[2018-03-02 18:21] LABS: BEDSIDE GLUCOSE 63 MG/DL (80-115)
[2018-03-02 20:53] LABS: BEDSIDE GLUCOSE 108 MG/DL (80-115)
[2018-03-02 21:31] LABS: CPK CREATINE PHOSPHOKINASE 98 U/L (39-308); TROPONIN I 0.07 NG/ML (< 0.10)
[2018-03-02 21:32] LABS: CK-MB VALUE MASS 4.7 NG/ML (<3.6); MB/CK RELATIVE INDEX 4.79 (< OR =4)
[2018-03-03] MEDS: MORPHINE 4 MG/ML 1ML VIAL/SYRINGE (J2270) IV ×20 (00:20→23:13)
[2018-03-03] MEDS: hydrALAZINE INJ 20 MG/ML VIAL IV ×6 (00:29→11:31)
[2018-03-03 01:06] LABS: BEDSIDE GLUCOSE 110 MG/DL (80-115)
[2018-03-03] MEDS: D5W/0.45% SODIUM CHLORIDE 1,000 ML IV ×4 (03:21→11:30)
[2018-03-03] MEDS: cloNIDine 0.2 MG TAB PO ×6 (05:39→11:31)
[2018-03-03 05:45] LABS: HEMATOCRIT 30.1 % (42.0-52.0); HEMOGLOBIN 9.2 g/dl (13.5-17.5); MEAN CORPUSCULAR HEMOGLOBIN 25.1 pg (27.0-33.0); MEAN CORPUSCULAR HGB CONC 30.6 g/dl (32.0-36.5); PLATELET COUNT, AUTOMATED 129 10^3/uL (150-450); RED BLOOD COUNT 3.67 10^6/uL (4.30-6.10); RED CELL DISTRIBUTION WIDTH 16.1 % (11.5-14.5); WHITE BLOOD COUNT 5.3 10^3/uL (4.0-10.0)
[2018-03-03] MEDS: HEPARIN SOD (PORCINE) 5000 UNITS/ML VIAL SC ×6 (05:47→21:08)
[2018-03-03] MEDS: LABETALOL 200 MG TAB PO ×6 (05:48→21:08)
[2018-03-03 06:01] LABS: ALBUMIN 2.8 GM/DL (3.2-5.2); ALBUMIN/GLOBULIN RATIO 0.53 (1.00-1.93); ALKALINE PHOSPHATASE 126 U/L (45-117); ALT/SGPT 28 U/L (12-78); ANION GAP 9 MEQ/L (8-16); AST/SGOT 25 U/L (7-37); BILIRUBIN,TOTAL 0.4 MG/DL (0.2-1.0); BLOOD UREA NITROGEN 45 MG/DL (7-18); CALCIUM LEVEL 8.2 MG/DL (8.8-10.2); CARBON DIOXIDE LEVEL 22 MEQ/L (21-32); CHLORIDE LEVEL 109 MEQ/L (98-107); CREATININE FOR GFR 2.73 MG/DL (0.70-1.30); GLOMERULAR FILTRATION RATE 30.8 (>49); GLUCOSE, FASTING 110 MG/DL (70-100); SODIUM LEVEL 140 MEQ/L (136-145); TOTAL PROTEIN 8.1 GM/DL (6.4-8.2)
[2018-03-03] MEDS: GASTROGRAFIN SOLUTION 30ML PO ×4 (08:15→08:40)
[2018-03-03] MEDS: diltiaZEM **CD** 180 MG CAP PO ×2 (08:43)
[2018-03-03] MEDS: ASPIRIN 81 MG ENTERIC TAB PO ×2 (08:43)
[2018-03-03] MEDS: FERROUS GLUCONATE 324 MG TAB PO ×2 (08:43)
[2018-03-03] MEDS: cefTRIAXone SOD 1 GM in D5W MINI-BAG PLUS 50 ML IV (10:38)
[2018-03-03] MEDS: metroNIDAZOLE 500 MG in APPROPRIATE DILUENT 1 EA IV (11:29)
[2018-03-03] MEDS: GABAPENTIN 400 MG CAP PO ×2 (12:06)
[2018-03-03 12:40] LABS: BEDSIDE GLUCOSE 83 MG/DL (80-115)
[2018-03-03] MEDS: PANTOPRAZOLE 40MG INJ (PROTONIX) (C9113) IV ×2 (14:52)
[2018-03-03] MEDS: FUROSEMIDE 100 MG/10 ML VIAL (J1940) IV ×2 (15:28)
[2018-03-03 17:49] LABS: BEDSIDE GLUCOSE 120 MG/DL (80-115)
[2018-03-03] MEDS ORDERED: cloNIDine 0.1 MG TAB PO ×2 (18:00)
[2018-03-03 21:32] LABS: APPEARANCE, URINE CLOUDY (CLEAR); BACTERIA, URINE AUTO 1+ (NEGATIVE); BILIRUBIN, URINE AUTO NEGATIVE (NEGATIVE); BLOOD, URINE BLOOD 3+ (NEGATIVE); COLOR, URINE RED (YELLOW); GLUCOSE, URINE (UA) AUTO NEGATIVE (NEGATIVE); KETONE, URINE AUTO NEGATIVE (NEGATIVE); LEUKOCYTE ESTERASE, URINE AUTO NEGATIVE (NEGATIVE); NITRITE, URINE AUTO NEGATIVE (NEGATIVE); PROTEIN, URINE AUTO 2+ mg/dL (NEGATIVE); RBC, URINE AUTO TNTC /HPF (0-3); SPECIFIC GRAVITY URINE AUTO 1.008 (1.002-1.035); SQUAMOUS EPITHELIAL CELL UR AU 0 /HPF (0-6); UROBILINOGEN, URINE AUTO 0.2 mg/dL (0.0-2.0); WBC, URINE AUTO 37 /HPF (0-3)
[2018-03-04 00:07] LABS: FREE KAPPA LIGHT CHAINS SERUM 139.8 mg/L (3.3-19.4); FREE LAMBDA LIGHT CHAINS SERUM 82.2 mg/L (5.7-26.3)
[2018-03-04] MEDS: zolPIDEM TARTRATE 5 MG TAB PO ×4 (00:47→22:39)
[2018-03-04] MEDS: MORPHINE 4 MG/ML 1ML VIAL/SYRINGE (J2270) IV ×16 (01:25→22:52)
[2018-03-04] MEDS: LABETALOL 200 MG TAB PO ×6 (05:37→22:51)
[2018-03-04] MEDS: HEPARIN SOD (PORCINE) 5000 UNITS/ML VIAL SC ×6 (05:38→22:40)
[2018-03-04 06:38] LABS: HEMATOCRIT 28.1 % (42.0-52.0); HEMOGLOBIN 8.5 g/dl (13.5-17.5); MEAN CORPUSCULAR HEMOGLOBIN 24.6 pg (27.0-33.0); MEAN CORPUSCULAR HGB CONC 30.2 g/dl (32.0-36.5); MEAN CORPUSCULAR VOLUME 81.4 fl (80.0-96.0); PLATELET COUNT, AUTOMATED 114 10^3/uL (150-450); RED BLOOD COUNT 3.45 10^6/uL (4.30-6.10); RED CELL DISTRIBUTION WIDTH 16.2 % (11.5-14.5)
[2018-03-04 06:56] LABS: ANION GAP 8 MEQ/L (8-16); BLOOD UREA NITROGEN 46 MG/DL (7-18); CALCIUM LEVEL 7.7 MG/DL (8.8-10.2); CARBON DIOXIDE LEVEL 22 MEQ/L (21-32); CHLORIDE LEVEL 108 MEQ/L (98-107); GLOMERULAR FILTRATION RATE 29.9 (>49); GLUCOSE, FASTING 93 MG/DL (70-100); POTASSIUM SERUM 4.6 MEQ/L (3.5-5.1); SODIUM LEVEL 138 MEQ/L (136-145)
[2018-03-04] MEDS: FERROUS GLUCONATE 324 MG TAB PO ×2 (08:02)
[2018-03-04] MEDS: ASPIRIN 81 MG ENTERIC TAB PO ×2 (08:02)
[2018-03-04] MEDS: diltiaZEM **CD** 180 MG CAP PO ×2 (08:03)
[2018-03-04] MEDS: cefTRIAXone SOD 1 GM in D5W MINI-BAG PLUS 50 ML IV (10:14)
[2018-03-04 11:40] LABS: BEDSIDE GLUCOSE 107 MG/DL (80-115)
[2018-03-04] MEDS: PANTOPRAZOLE 40MG INJ (PROTONIX) (C9113) IV ×2 (14:32)
[2018-03-05] MEDS: ONDANSETRON 4MG/2ML VIAL (J2405) IV ×2 (00:37)
[2018-03-05] MEDS: MORPHINE 4 MG/ML 1ML VIAL/SYRINGE (J2270) IV ×14 (02:18→22:27)
[2018-03-05] MEDS: LABETALOL 200 MG TAB PO ×6 (06:01→22:27)
[2018-03-05] MEDS: HEPARIN SOD (PORCINE) 5000 UNITS/ML VIAL SC ×6 (06:01→22:26)
[2018-03-05 06:49] LABS: HEMOGLOBIN 8.5 g/dl (13.5-17.5); MEAN CORPUSCULAR HEMOGLOBIN 24.8 pg (27.0-33.0); MEAN CORPUSCULAR HGB CONC 30.4 g/dl (32.0-36.5); MEAN CORPUSCULAR VOLUME 81.6 fl (80.0-96.0); PLATELET COUNT, AUTOMATED 120 10^3/uL (150-450); RED BLOOD COUNT 3.43 10^6/uL (4.30-6.10); WHITE BLOOD COUNT 4.4 10^3/uL (4.0-10.0)
[2018-03-05 07:12] LABS: ANION GAP 7 MEQ/L (8-16); BLOOD UREA NITROGEN 45 MG/DL (7-18); CALCIUM LEVEL 8.2 MG/DL (8.8-10.2); CARBON DIOXIDE LEVEL 23 MEQ/L (21-32); CHLORIDE LEVEL 104 MEQ/L (98-107); CREATININE FOR GFR 2.35 MG/DL (0.70-1.30); GLOMERULAR FILTRATION RATE 36.6 (>49); GLUCOSE, FASTING 87 MG/DL (70-100); POTASSIUM SERUM 4.8 MEQ/L (3.5-5.1); SODIUM LEVEL 134 MEQ/L (136-145)
[2018-03-05] MEDS: ASPIRIN 81 MG ENTERIC TAB PO ×2 (09:14)
[2018-03-05] MEDS: FERROUS GLUCONATE 324 MG TAB PO ×2 (09:14)
[2018-03-05] MEDS: diltiaZEM **CD** 180 MG CAP PO ×2 (09:14)
[2018-03-05] MEDS: cefTRIAXone SOD 1 GM in D5W MINI-BAG PLUS 50 ML IV (09:15)
[2018-03-05] MEDS: PANTOPRAZOLE 40MG INJ (PROTONIX) (C9113) IV ×2 (14:16)
[2018-03-06 00:06] LABS: IgG SUBCLASS 4(ONLY) 34 mg/dL (2-96)
[2018-03-06] MEDS: MORPHINE 4 MG/ML 1ML VIAL/SYRINGE (J2270) IV ×12 (00:43→22:56)
[2018-03-06] MEDS: LABETALOL 200 MG TAB PO ×6 (06:22→21:10)
[2018-03-06] MEDS: HEPARIN SOD (PORCINE) 5000 UNITS/ML VIAL SC ×4 (06:34→14:00)
[2018-03-06 06:54] LABS: HEMATOCRIT 26.4 % (42.0-52.0); MEAN CORPUSCULAR HEMOGLOBIN 24.4 pg (27.0-33.0); MEAN CORPUSCULAR HGB CONC 30.3 g/dl (32.0-36.5); MEAN CORPUSCULAR VOLUME 80.5 fl (80.0-96.0); PLATELET COUNT, AUTOMATED 122 10^3/uL (150-450); RED BLOOD COUNT 3.28 10^6/uL (4.30-6.10); RED CELL DISTRIBUTION WIDTH 15.8 % (11.5-14.5); WHITE BLOOD COUNT 4.5 10^3/uL (4.0-10.0)
[2018-03-06 07:03] LABS: ANION GAP 10 MEQ/L (8-16); BLOOD UREA NITROGEN 45 MG/DL (7-18); CALCIUM LEVEL 7.8 MG/DL (8.8-10.2); CARBON DIOXIDE LEVEL 20 MEQ/L (21-32); CHLORIDE LEVEL 110 MEQ/L (98-107); GLOMERULAR FILTRATION RATE 39.5 (>49); GLUCOSE, FASTING 83 MG/DL (70-100); POTASSIUM SERUM 5.1 MEQ/L (3.5-5.1); SODIUM LEVEL 140 MEQ/L (136-145)
[2018-03-06] MEDS: ASPIRIN 81 MG ENTERIC TAB PO ×2 (09:27)
[2018-03-06] MEDS: FERROUS GLUCONATE 324 MG TAB PO ×2 (09:28)
[2018-03-06] MEDS: diltiaZEM **CD** 180 MG CAP PO ×2 (09:30)
[2018-03-06] MEDS: cefTRIAXone SOD 1 GM in D5W MINI-BAG PLUS 50 ML IV (11:16)
[2018-03-06 12:04] LABS: IRON (FE) 24 UG/DL (65-175); PERCENT SATURATION 14.8 % (19.7-50.0); TOTAL IRON BINDING CAPACITY 162 UG/DL (250-450)
[2018-03-06] MEDS ORDERED: ISOVUE-300 61% 50ML VIAL (Q9967) As Ordered ×2 (12:47)
[2018-03-06 13:36] LABS: FERRITIN 552 NG/ML (26-388)
[2018-03-06] MEDS ORDERED: MIDAZOLAM INJ 2 MG/2 ML VIAL (J2250) As Ordered ×2 (13:41)
[2018-03-06] MEDS ORDERED: fentaNYL 100 MCG/2 ML INJECTION (J3010) As Ordered ×2 (13:41)
[2018-03-06] MEDS ORDERED: LIDOCAINE 2% MDV 20 ML VIAL As Ordered ×2 (14:15)
[2018-03-06] MEDS: LR 1,000 ML IV ×2 (15:30)
[2018-03-06] MEDS ORDERED: fentaNYL 100 MCG/2 ML INJECTION (J3010) IV ×2 (15:30)
[2018-03-06] MEDS ORDERED: ONDANSETRON 4MG/2ML VIAL (J2405) IV ×2 (15:30)
[2018-03-06] MEDS: PANTOPRAZOLE 40MG INJ (PROTONIX) (C9113) IV ×2 (17:42)
[2018-03-06 22:22] LABS: BEDSIDE GLUCOSE 125 MG/DL (80-115)
[2018-03-07] MEDS: MORPHINE 4 MG/ML 1ML VIAL/SYRINGE (J2270) IV ×12 (01:15→20:11)
[2018-03-07] MEDS: SENNA 8.6 MG TAB (SENOKOT) PO ×2 (04:07)
[2018-03-07] MEDS: ONDANSETRON 4MG/2ML VIAL (J2405) IV ×2 (04:40)
[2018-03-07 05:47] LABS: HEMATOCRIT 23.8 % (42.0-52.0); HEMOGLOBIN 7.4 g/dl (13.5-17.5); MEAN CORPUSCULAR HEMOGLOBIN 25.3 pg (27.0-33.0); MEAN CORPUSCULAR HGB CONC 31.1 g/dl (32.0-36.5); MEAN CORPUSCULAR VOLUME 81.2 fl (80.0-96.0); PLATELET COUNT, AUTOMATED 149 10^3/uL (150-450); RED BLOOD COUNT 2.93 10^6/uL (4.30-6.10); RED CELL DISTRIBUTION WIDTH 15.9 % (11.5-14.5); WHITE BLOOD COUNT 3.4 10^3/uL (4.0-10.0)
[2018-03-07 06:04] LABS: ANION GAP 9 MEQ/L (8-16); BLOOD UREA NITROGEN 49 MG/DL (7-18); CALCIUM LEVEL 8.1 MG/DL (8.8-10.2); CARBON DIOXIDE LEVEL 19 MEQ/L (21-32); CHLORIDE LEVEL 113 MEQ/L (98-107); CREATININE FOR GFR 2.49 MG/DL (0.70-1.30); GLOMERULAR FILTRATION RATE 34.2 (>49); GLUCOSE, FASTING 135 MG/DL (70-100); SODIUM LEVEL 141 MEQ/L (136-145)
[2018-03-07 06:08] LABS: POTASSIUM SERUM 5.6 MEQ/L (3.5-5.1)
[2018-03-07] MEDS: LABETALOL 200 MG TAB PO ×6 (06:10→21:09)
[2018-03-07] MEDS: HEPARIN SOD (PORCINE) 5000 UNITS/ML VIAL SC ×4 (06:21→14:00)
[2018-03-07 07:20] LABS: HEMOGLOBIN 7.1 g/dl (13.5-17.5)
[2018-03-07 07:35] LABS: RETIC HEMOGLOBIN EQUIVALENT 32.7 pg (24-36); RETICULOCYTE # 35.8 10^9/L (17-77); RETICULOCYTE % 1.2 % (0.5-1.5)
[2018-03-07 07:38] LABS: FERRITIN 499 NG/ML (26-388); IRON (FE) 64 UG/DL (65-175); PERCENT SATURATION 28.2 % (19.7-50.0); TOTAL IRON BINDING CAPACITY 227 UG/DL (250-450)
[2018-03-07 07:41] LABS: SLIDE REVIEW Report; SOURCE PERIPHERAL SMEAR
[2018-03-07 07:45] LABS: POTASSIUM SERUM 5.8 MEQ/L (3.5-5.1)
[2018-03-07] MEDS: CALCIUM GLUCONATE 1,000 MG in D5W MINI-BAG PLUS 100 ML IV (08:06)
[2018-03-07] MEDS: SOD POLYSTYRENE SULFONATE SUSP 15 GM/60 ML UD PO ×2 (08:06)
[2018-03-07] MEDS: DOCUSATE SODIUM 100 MG CAP PO ×4 (08:08→21:09)
[2018-03-07] MEDS: diltiaZEM **CD** 180 MG CAP PO ×2 (08:09)
[2018-03-07] MEDS: ASCORBIC ACID 500 MG TAB PO ×2 (08:09)
[2018-03-07] MEDS: FERROUS GLUCONATE 324 MG TAB PO ×2 (08:09)
[2018-03-07] MEDS: ASPIRIN 81 MG ENTERIC TAB PO ×2 (08:09)
[2018-03-07 09:47] LABS: IMMEDIATE SPIN CROSSMATCH 1 1
[2018-03-07] MEDS: cefTRIAXone SOD 1 GM in D5W MINI-BAG PLUS 50 ML IV (11:12)
[2018-03-07] MEDS: D5W/0.9% SODIUM CHLORIDE 1,000 ML IV ×4 (11:15→21:36)
[2018-03-07] MEDS: GASTROGRAFIN SOLUTION 30ML PO ×4 (11:35→12:12)
[2018-03-07] MEDS: NITROGLYCERIN 0.3 MG SUBL TAB SL ×4 (11:38→11:45)
[2018-03-07 11:56] LABS: INR 1.05; PROTHROMBIN TIME 13.8 SECONDS (12.1-14.4)
[2018-03-07 12:12] LABS: LACTIC ACID SEPSIS PROTOCOL 2.8 MMOL/L (0.4-2.0)
[2018-03-07 12:16] LABS: ALBUMIN 2.5 GM/DL (3.2-5.2); ALBUMIN/GLOBULIN RATIO 0.63 (1.00-1.93); ALKALINE PHOSPHATASE 89 U/L (45-117); ALT/SGPT 22 U/L (12-78); AMYLASE 91 U/L (25-115); AST/SGOT 23 U/L (7-37); BILIRUBIN,DIRECT 0.1 MG/DL (0.0-0.2); BILIRUBIN,TOTAL 0.2 MG/DL (0.2-1.0); LIPASE 115 U/L (73-393); TOTAL PROTEIN 6.5 GM/DL (6.4-8.2)
[2018-03-07 12:27] LABS: BEDSIDE GLUCOSE 101 MG/DL (80-115)
[2018-03-07 14:26] LABS: HEMATOCRIT 24.6 % (42.0-52.0); HEMOGLOBIN 7.8 g/dl (13.5-17.5)
[2018-03-07] MEDS: PANTOPRAZOLE 40MG INJ (PROTONIX) (C9113) IV ×2 (14:44)
[2018-03-07 18:34] LABS: POTASSIUM SERUM 5.6 MEQ/L (3.5-5.1)
[2018-03-07 19:20] LABS: IMMEDIATE SPIN CROSSMATCH 1 2
[2018-03-07] MEDS: PERCOCET 5MG/325MG TAB PO ×2 (21:37)
[2018-03-07] MEDS: hydrALAZINE INJ 20 MG/ML VIAL IV ×2 (22:41)
[2018-03-07 22:54] LABS: HEMATOCRIT 31.5 % (42.0-52.0)
[2018-03-08] MEDS: MORPHINE 4 MG/ML 1ML VIAL/SYRINGE (J2270) IV ×10 (01:50→20:29)
[2018-03-08 05:18] LABS: HEMATOCRIT 31.8 % (42.0-52.0); MEAN CORPUSCULAR HEMOGLOBIN 26.8 pg (27.0-33.0); MEAN CORPUSCULAR HGB CONC 31.4 g/dl (32.0-36.5); MEAN CORPUSCULAR VOLUME 85.3 fl (80.0-96.0); PLATELET COUNT, AUTOMATED 128 10^3/uL (150-450); RED BLOOD COUNT 3.73 10^6/uL (4.30-6.10); WHITE BLOOD COUNT 10.6 10^3/uL (4.0-10.0)
[2018-03-08 05:42] LABS: ANION GAP 9 MEQ/L (8-16); BLOOD UREA NITROGEN 53 MG/DL (7-18); CALCIUM LEVEL 7.7 MG/DL (8.8-10.2); CARBON DIOXIDE LEVEL 17 MEQ/L (21-32); CHLORIDE LEVEL 117 MEQ/L (98-107); CREATININE FOR GFR 2.52 MG/DL (0.70-1.30); GLOMERULAR FILTRATION RATE 33.7 (>49); GLUCOSE, FASTING 103 MG/DL (70-100); POTASSIUM SERUM 5.1 MEQ/L (3.5-5.1); SODIUM LEVEL 143 MEQ/L (136-145)
[2018-03-08] MEDS: PERCOCET 5MG/325MG TAB PO ×8 (05:59→22:36)
[2018-03-08] MEDS: LABETALOL 200 MG TAB PO ×6 (05:59→17:42)
[2018-03-08] MEDS: D5W/0.9% SODIUM CHLORIDE 1,000 ML IV ×4 (05:59→22:36)
[2018-03-08] MEDS: ASCORBIC ACID 500 MG TAB PO ×2 (08:39)
[2018-03-08] MEDS: DOCUSATE SODIUM 100 MG CAP PO ×4 (08:39→20:29)
[2018-03-08] MEDS: ASPIRIN 81 MG ENTERIC TAB PO ×2 (08:40)
[2018-03-08] MEDS: FERROUS GLUCONATE 324 MG TAB PO ×2 (08:40)
[2018-03-08] MEDS: diltiaZEM **CD** 180 MG CAP PO ×2 (08:40)
[2018-03-08] MEDS: cefTRIAXone SOD 1 GM in D5W MINI-BAG PLUS 50 ML IV (08:41)
[2018-03-08 10:10] LABS: HEMATOCRIT 27.5 % (42.0-52.0); HEMOGLOBIN 8.8 g/dl (13.5-17.5)
[2018-03-08] MEDS: hydrALAZINE INJ 20 MG/ML VIAL IV ×8 (11:02→22:38)
[2018-03-08 12:04] LABS: BEDSIDE GLUCOSE 85 MG/DL (80-115)
[2018-03-08] MEDS: PANTOPRAZOLE 40MG INJ (PROTONIX) (C9113) IV ×2 (15:26)
[2018-03-08 16:30] LABS: HEMATOCRIT 26.1 % (42.0-52.0); HEMOGLOBIN 8.5 g/dl (13.5-17.5)
[2018-03-08] MEDS ORDERED: GLUCOSE 4 GM CHEW TABLET PO ×2 (17:00)
[2018-03-08] MEDS ORDERED: DEXTROSE 50% 50 ML SYRINGE IV ×2 (17:00)
[2018-03-08] MEDS ORDERED: GLUCAGON FOR INJ 1 MG VIAL (J1610) SC ×2 (17:00)
[2018-03-08] MEDS: HumaLOG INSULIN (NovoLOG) PER UNIT SC ×4 (17:30→21:00)
[2018-03-08 17:36] LABS: BEDSIDE GLUCOSE 58 MG/DL (80-115)
[2018-03-08] MEDS: DEXTROSE 50% 50 ML SYRINGE IV ×4 (18:18→22:46)
[2018-03-08 18:23] LABS: BEDSIDE GLUCOSE 51 MG/DL (80-115)
[2018-03-08 18:36] LABS: BEDSIDE GLUCOSE 74 MG/DL (80-115)
[2018-03-08 20:24] LABS: BEDSIDE GLUCOSE 77 MG/DL (80-115)
[2018-03-08 22:43] LABS: BEDSIDE GLUCOSE 58 MG/DL (80-115)
[2018-03-08 22:44] LABS: HEMATOCRIT 27.2 % (42.0-52.0); HEMOGLOBIN 8.8 g/dl (13.5-17.5)
[2018-03-08 22:48] LABS: POS COUNT POS FLAG
[2018-03-08 23:12] LABS: BEDSIDE GLUCOSE 99 MG/DL (80-115)
[2018-03-09] MEDS: LABETALOL 200 MG TAB PO ×8 (00:39→18:17)
[2018-03-09] MEDS: MORPHINE 4 MG/ML 1ML VIAL/SYRINGE (J2270) IV ×8 (00:39→20:09)
[2018-03-09 00:44] LABS: BEDSIDE GLUCOSE 82 MG/DL (80-115)
[2018-03-09] MEDS: hydrALAZINE INJ 20 MG/ML VIAL IV ×12 (03:04→23:30)
[2018-03-09 05:34] LABS: HEMATOCRIT 26.9 % (42.0-52.0); HEMOGLOBIN 8.5 g/dl (13.5-17.5); MEAN CORPUSCULAR HEMOGLOBIN 26.7 pg (27.0-33.0); MEAN CORPUSCULAR HGB CONC 31.6 g/dl (32.0-36.5); MEAN CORPUSCULAR VOLUME 84.6 fl (80.0-96.0); PLATELET COUNT, AUTOMATED 127 10^3/uL (150-450); RED BLOOD COUNT 3.18 10^6/uL (4.30-6.10); RED CELL DISTRIBUTION WIDTH 16.9 % (11.5-14.5); WHITE BLOOD COUNT 8.5 10^3/uL (4.0-10.0)
[2018-03-09] MEDS: PERCOCET 5MG/325MG TAB PO ×4 (05:35→18:16)
[2018-03-09] MEDS: MIRALAX *UNIT DOSE* 17GM PACKET PO ×2 (05:35)
[2018-03-09 05:48] LABS: ANION GAP 8 MEQ/L (8-16); BLOOD UREA NITROGEN 48 MG/DL (7-18); CALCIUM LEVEL 7.7 MG/DL (8.8-10.2); CARBON DIOXIDE LEVEL 21 MEQ/L (21-32); CHLORIDE LEVEL 116 MEQ/L (98-107); CREATININE FOR GFR 1.95 MG/DL (0.70-1.30); GLOMERULAR FILTRATION RATE 45.4 (>49); GLUCOSE, FASTING 94 MG/DL (70-100); POTASSIUM SERUM 4.7 MEQ/L (3.5-5.1); SODIUM LEVEL 145 MEQ/L (136-145)
[2018-03-09] MEDS: HumaLOG INSULIN (NovoLOG) PER UNIT SC ×8 (07:30→19:44)
[2018-03-09] MEDS: SENNA 8.6 MG TAB (SENOKOT) PO ×4 (08:31→20:07)
[2018-03-09] MEDS: ASCORBIC ACID 500 MG TAB PO ×2 (08:32)
[2018-03-09] MEDS: DOCUSATE SODIUM 100 MG CAP PO ×4 (08:32→20:07)
[2018-03-09] MEDS: ASPIRIN 81 MG ENTERIC TAB PO ×2 (08:33)
[2018-03-09] MEDS: diltiaZEM **CD** 180 MG CAP PO ×2 (08:33)
[2018-03-09] MEDS: FERROUS GLUCONATE 324 MG TAB PO ×2 (08:33)
[2018-03-09] MEDS: cefTRIAXone SOD 1 GM in D5W MINI-BAG PLUS 50 ML IV (10:00)
[2018-03-09 10:23] LABS: HEMATOCRIT 24.7 % (42.0-52.0); HEMOGLOBIN 8.1 g/dl (13.5-17.5)
[2018-03-09 10:24] LABS: POS COUNT POS FLAG
[2018-03-09] MEDS: BISACODYL 5 MG TAB PO ×2 (10:30)
[2018-03-09 11:55] LABS: BEDSIDE GLUCOSE 88 MG/DL (80-115)
[2018-03-09] MEDS: PANTOPRAZOLE 40MG INJ (PROTONIX) (C9113) IV ×2 (15:17)
[2018-03-09] MEDS: D5W/0.9% SODIUM CHLORIDE 1,000 ML IV ×2 (15:17)
[2018-03-09 16:41] LABS: HEMATOCRIT 24.9 % (42.0-52.0); HEMOGLOBIN 8.1 g/dl (13.5-17.5)
[2018-03-09 18:37] LABS: BEDSIDE GLUCOSE 114 MG/DL (80-115)
[2018-03-09 20:03] LABS: BEDSIDE GLUCOSE 105 MG/DL (80-115)
[2018-03-09 23:09] LABS: HEMATOCRIT 29.1 % (42.0-52.0); HEMOGLOBIN 8.9 g/dl (13.5-17.5)
[2018-03-10] MEDS: LABETALOL 200 MG TAB PO ×10 (00:16→23:29)
[2018-03-10] MEDS: hydrALAZINE INJ 20 MG/ML VIAL IV ×12 (04:09→23:28)
[2018-03-10] MEDS: PERCOCET 5MG/325MG TAB PO ×8 (04:10→23:28)
[2018-03-10] MEDS: MORPHINE 4 MG/ML 1ML VIAL/SYRINGE (J2270) IV ×6 (06:13→20:15)
[2018-03-10 06:30] LABS: HEMATOCRIT 24.9 % (42.0-52.0); MEAN CORPUSCULAR HEMOGLOBIN 26.8 pg (27.0-33.0); MEAN CORPUSCULAR HGB CONC 32.1 g/dl (32.0-36.5); MEAN CORPUSCULAR VOLUME 83.3 fl (80.0-96.0); PLATELET COUNT, AUTOMATED 155 10^3/uL (150-450); RED BLOOD COUNT 2.99 10^6/uL (4.30-6.10); RED CELL DISTRIBUTION WIDTH 17.3 % (11.5-14.5); WHITE BLOOD COUNT 9.7 10^3/uL (4.0-10.0)
[2018-03-10 06:44] LABS: ANION GAP 9 MEQ/L (8-16); BLOOD UREA NITROGEN 43 MG/DL (7-18); CARBON DIOXIDE LEVEL 19 MEQ/L (21-32); CHLORIDE LEVEL 118 MEQ/L (98-107); CREATININE FOR GFR 1.61 MG/DL (0.70-1.30); GLOMERULAR FILTRATION RATE 56.6 (>49); GLUCOSE, FASTING 87 MG/DL (70-100); POTASSIUM SERUM 4.3 MEQ/L (3.5-5.1); SODIUM LEVEL 146 MEQ/L (136-145)
[2018-03-10] MEDS: D5W/0.9% SODIUM CHLORIDE 1,000 ML IV ×2 (07:27)
[2018-03-10] MEDS: HumaLOG INSULIN (NovoLOG) PER UNIT SC ×8 (07:30→20:47)
[2018-03-10] MEDS: FERROUS GLUCONATE 324 MG TAB PO ×2 (08:33)
[2018-03-10] MEDS: ASCORBIC ACID 500 MG TAB PO ×2 (08:33)
[2018-03-10] MEDS: ASPIRIN 81 MG ENTERIC TAB PO ×2 (08:33)
[2018-03-10] MEDS: DOCUSATE SODIUM 100 MG CAP PO ×4 (08:34→20:12)
[2018-03-10] MEDS: SENNA 8.6 MG TAB (SENOKOT) PO ×4 (08:34→20:12)
[2018-03-10] MEDS: diltiaZEM **CD** 180 MG CAP PO ×2 (09:00)
[2018-03-10 11:53] LABS: BEDSIDE GLUCOSE 103 MG/DL (80-115)
[2018-03-10] MEDS: NS 0.45% 1,000 ML IV ×2 (12:30)
[2018-03-10] MEDS: GABAPENTIN 400 MG CAP PO ×2 (13:39)
[2018-03-10 17:02] LABS: BEDSIDE GLUCOSE 90 MG/DL (80-115)
[2018-03-10] MEDS: PANTOPRAZOLE 40MG INJ (PROTONIX) (C9113) IV ×2 (17:15)
[2018-03-10 20:43] LABS: BEDSIDE GLUCOSE 95 MG/DL (80-115)
[2018-03-11] MEDS: hydrALAZINE INJ 20 MG/ML VIAL IV ×12 (02:45→22:57)
[2018-03-11] MEDS: MORPHINE 4 MG/ML 1ML VIAL/SYRINGE (J2270) IV ×8 (02:46→15:06)
[2018-03-11] MEDS: LABETALOL 200 MG TAB PO ×8 (05:16→23:47)
[2018-03-11 05:27] LABS: HEMATOCRIT 24.8 % (42.0-52.0); HEMOGLOBIN 7.9 g/dl (13.5-17.5); MEAN CORPUSCULAR HEMOGLOBIN 27.1 pg (27.0-33.0); MEAN CORPUSCULAR HGB CONC 31.9 g/dl (32.0-36.5); MEAN CORPUSCULAR VOLUME 84.9 fl (80.0-96.0); PLATELET COUNT, AUTOMATED 183 10^3/uL (150-450); RED BLOOD COUNT 2.92 10^6/uL (4.30-6.10); RED CELL DISTRIBUTION WIDTH 17.9 % (11.5-14.5); WHITE BLOOD COUNT 9.8 10^3/uL (4.0-10.0)
[2018-03-11 05:43] LABS: ANION GAP 10 MEQ/L (8-16); BLOOD UREA NITROGEN 39 MG/DL (7-18); CALCIUM LEVEL 7.9 MG/DL (8.8-10.2); CARBON DIOXIDE LEVEL 18 MEQ/L (21-32); CHLORIDE LEVEL 117 MEQ/L (98-107); CREATININE FOR GFR 1.61 MG/DL (0.70-1.30); GLOMERULAR FILTRATION RATE 56.6 (>49); GLUCOSE, FASTING 87 MG/DL (70-100); POTASSIUM SERUM 4.3 MEQ/L (3.5-5.1); SODIUM LEVEL 145 MEQ/L (136-145)
[2018-03-11] MEDS: PERCOCET 5MG/325MG TAB PO ×8 (05:59→23:47)
[2018-03-11] MEDS: HEPARIN SOD (PORCINE) 5000 UNITS/ML VIAL SC ×6 (06:11→22:21)
[2018-03-11] MEDS: NS 0.45% 1,000 ML IV ×4 (06:12→22:21)
[2018-03-11] MEDS: HumaLOG INSULIN (NovoLOG) PER UNIT SC ×8 (07:03→20:17)
[2018-03-11] MEDS: GABAPENTIN 400 MG CAP PO ×2 (08:37)
[2018-03-11] MEDS: ASPIRIN 81 MG ENTERIC TAB PO ×2 (08:38)
[2018-03-11] MEDS: diltiaZEM **CD** 180 MG CAP PO ×2 (08:38)
[2018-03-11] MEDS: DOCUSATE SODIUM 100 MG CAP PO ×6 (08:38→20:17)
[2018-03-11] MEDS: FERROUS GLUCONATE 324 MG TAB PO ×2 (08:38)
[2018-03-11] MEDS: SENNA 8.6 MG TAB (SENOKOT) PO ×6 (08:38→20:17)
[2018-03-11] MEDS: ASCORBIC ACID 500 MG TAB PO ×2 (08:38)
[2018-03-11 09:25] LABS: IMMEDIATE SPIN CROSSMATCH 1 1
[2018-03-11 13:14] LABS: HEMATOCRIT 31.3 % (42.0-52.0); MEAN CORPUSCULAR HGB CONC 31.9 g/dl (32.0-36.5); MEAN CORPUSCULAR VOLUME 87.7 fl (80.0-96.0); PLATELET COUNT, AUTOMATED 182 10^3/uL (150-450); RED BLOOD COUNT 3.57 10^6/uL (4.30-6.10); RED CELL DISTRIBUTION WIDTH 17.8 % (11.5-14.5); WHITE BLOOD COUNT 10.8 10^3/uL (4.0-10.0)
[2018-03-11] MEDS: PANTOPRAZOLE 40MG INJ (PROTONIX) (C9113) IV ×2 (15:05)
[2018-03-11 16:43] LABS: BEDSIDE GLUCOSE 99 MG/DL (80-115)
[2018-03-11 19:45] LABS: BEDSIDE GLUCOSE 108 MG/DL (80-115)
[2018-03-11] MEDS ORDERED: PHENAZOPYRIDINE 100 MG TAB PO ×2 (23:30)
[2018-03-11] MEDS: PHENAZOPYRIDINE 100 MG TAB PO ×2 (23:52)
[2018-03-12] MEDS: MORPHINE 4 MG/ML 1ML VIAL/SYRINGE (J2270) IV ×6 (02:50→22:15)
[2018-03-12] MEDS: hydrALAZINE INJ 20 MG/ML VIAL IV ×12 (02:51→23:33)
[2018-03-12 05:11] LABS: HEMATOCRIT 30.7 % (42.0-52.0); HEMOGLOBIN 9.8 g/dl (13.5-17.5); MEAN CORPUSCULAR HEMOGLOBIN 27.7 pg (27.0-33.0); MEAN CORPUSCULAR HGB CONC 31.9 g/dl (32.0-36.5); MEAN CORPUSCULAR VOLUME 86.7 fl (80.0-96.0); PLATELET COUNT, AUTOMATED 178 10^3/uL (150-450); RED BLOOD COUNT 3.54 10^6/uL (4.30-6.10); RED CELL DISTRIBUTION WIDTH 17.4 % (11.5-14.5); WHITE BLOOD COUNT 9.4 10^3/uL (4.0-10.0)
[2018-03-12 05:32] LABS: ANION GAP 8 MEQ/L (8-16); BLOOD UREA NITROGEN 35 MG/DL (7-18); CALCIUM LEVEL 8.1 MG/DL (8.8-10.2); CARBON DIOXIDE LEVEL 20 MEQ/L (21-32); CHLORIDE LEVEL 115 MEQ/L (98-107); CREATININE FOR GFR 1.59 MG/DL (0.70-1.30); GLOMERULAR FILTRATION RATE 57.4 (>49); GLUCOSE, FASTING 77 MG/DL (70-100); POTASSIUM SERUM 4.3 MEQ/L (3.5-5.1); SODIUM LEVEL 143 MEQ/L (136-145)
[2018-03-12] MEDS: LABETALOL 200 MG TAB PO ×2 (06:01)
[2018-03-12] MEDS: HEPARIN SOD (PORCINE) 5000 UNITS/ML VIAL SC ×6 (06:01→22:14)
[2018-03-12] MEDS: HumaLOG INSULIN (NovoLOG) PER UNIT SC ×8 (07:36→21:00)
[2018-03-12] MEDS: LABETALOL 100 MG TAB PO ×6 (08:36→20:11)
[2018-03-12] MEDS: SENNA 8.6 MG TAB (SENOKOT) PO ×6 (08:37→20:24)
[2018-03-12] MEDS: FERROUS GLUCONATE 324 MG TAB PO ×2 (08:37)
[2018-03-12] MEDS: ASPIRIN 81 MG ENTERIC TAB PO ×2 (08:37)
[2018-03-12] MEDS: DOCUSATE SODIUM 100 MG CAP PO ×6 (08:37→20:24)
[2018-03-12] MEDS: ASCORBIC ACID 500 MG TAB PO ×2 (08:37)
[2018-03-12] MEDS: PHENAZOPYRIDINE 100 MG TAB PO ×4 (08:37→20:11)
[2018-03-12] MEDS: PERCOCET 5MG/325MG TAB PO ×4 (08:43→19:46)
[2018-03-12 10:43] LABS: NT-PRO BNP 5880 PG/ML (<125)
[2018-03-12] MEDS: LEVALBUTEROL 1.25 MG/0.5 ML CONCENTRATE NEB NEB ×2 (11:18)
[2018-03-12 12:02] LABS: BEDSIDE GLUCOSE 83 MG/DL (80-115)
[2018-03-12] MEDS: NS 0.45% 1,000 ML IV ×2 (13:04)
[2018-03-12] MEDS: LEVALBUTEROL 1.25 MG/0.5 ML CONCENTRATE NEB INH ×4 (15:11→19:50)
[2018-03-12] MEDS: PANTOPRAZOLE 40MG INJ (PROTONIX) (C9113) IV ×2 (16:42)
[2018-03-12 17:00] LABS: BEDSIDE GLUCOSE 85 MG/DL (80-115)
[2018-03-12] MEDS: MOXIFLOXACIN 400 MG TAB PO ×2 (17:49)
[2018-03-12] MEDS: LACTOBACILLUS ACIDOPHILUS CAP (BACID) PO ×2 (17:49)
[2018-03-12 20:37] LABS: BEDSIDE GLUCOSE 96 MG/DL (80-115)
[2018-03-13] MEDS: PERCOCET 5MG/325MG TAB PO ×8 (04:19→22:42)
[2018-03-13] MEDS: hydrALAZINE INJ 20 MG/ML VIAL IV ×6 (04:25→12:00)
[2018-03-13 05:16] LABS: HEMATOCRIT 28.9 % (42.0-52.0); HEMOGLOBIN 9.2 g/dl (13.5-17.5); MEAN CORPUSCULAR HEMOGLOBIN 27.1 pg (27.0-33.0); MEAN CORPUSCULAR HGB CONC 31.8 g/dl (32.0-36.5); PLATELET COUNT, AUTOMATED 165 10^3/uL (150-450); RED CELL DISTRIBUTION WIDTH 17.6 % (11.5-14.5); WHITE BLOOD COUNT 8.5 10^3/uL (4.0-10.0)
[2018-03-13 05:39] LABS: ANION GAP 10 MEQ/L (8-16); BLOOD UREA NITROGEN 38 MG/DL (7-18); CALCIUM LEVEL 8.2 MG/DL (8.8-10.2); CARBON DIOXIDE LEVEL 19 MEQ/L (21-32); CHLORIDE LEVEL 114 MEQ/L (98-107); CREATININE FOR GFR 1.65 MG/DL (0.70-1.30); GLUCOSE, FASTING 80 MG/DL (70-100); POTASSIUM SERUM 4.4 MEQ/L (3.5-5.1); SODIUM LEVEL 143 MEQ/L (136-145)
[2018-03-13] MEDS: HEPARIN SOD (PORCINE) 5000 UNITS/ML VIAL SC ×6 (06:10→21:26)
[2018-03-13] MEDS: MOXIFLOXACIN 400 MG TAB PO ×2 (06:10)
[2018-03-13] MEDS: MORPHINE 4 MG/ML 1ML VIAL/SYRINGE (J2270) IV ×4 (06:38→21:28)
[2018-03-13] MEDS: HumaLOG INSULIN (NovoLOG) PER UNIT SC ×8 (07:30→20:34)
[2018-03-13] MEDS: LEVALBUTEROL 1.25 MG/0.5 ML CONCENTRATE NEB INH ×8 (07:40→20:28)
[2018-03-13] MEDS: LABETALOL 100 MG TAB PO ×6 (08:39→21:27)
[2018-03-13] MEDS: ASCORBIC ACID 500 MG TAB PO ×2 (08:40)
[2018-03-13] MEDS: DOCUSATE SODIUM 100 MG CAP PO ×4 (08:40→21:00)
[2018-03-13] MEDS: LACTOBACILLUS ACIDOPHILUS CAP (BACID) PO ×4 (08:40→18:17)
[2018-03-13] MEDS: FERROUS GLUCONATE 324 MG TAB PO ×2 (08:41)
[2018-03-13] MEDS: ASPIRIN 81 MG ENTERIC TAB PO ×2 (08:41)
[2018-03-13] MEDS: SENNA 8.6 MG TAB (SENOKOT) PO ×4 (08:41→21:00)
[2018-03-13] MEDS: PHENAZOPYRIDINE 100 MG TAB PO ×4 (08:42→21:25)
[2018-03-13 11:33] LABS: BEDSIDE GLUCOSE 101 MG/DL (80-115)
[2018-03-13] MEDS: SLF 3 ML SYR IV ×6 (14:27→21:28)
[2018-03-13] MEDS: PANTOPRAZOLE 40MG INJ (PROTONIX) (C9113) IV ×2 (15:28)
[2018-03-13] MEDS: **hydrALAZINE** 10 MG TAB PO ×6 (15:31→22:41)
[2018-03-13 16:17] LABS: BEDSIDE GLUCOSE 95 MG/DL (80-115)
[2018-03-13 20:14] LABS: BEDSIDE GLUCOSE 125 MG/DL (80-115)
[2018-03-14] MEDS: **hydrALAZINE** 10 MG TAB PO ×6 (03:37→10:45)
[2018-03-14] MEDS: PERCOCET 5MG/325MG TAB PO ×6 (04:41→20:35)
[2018-03-14] MEDS: HEPARIN SOD (PORCINE) 5000 UNITS/ML VIAL SC ×6 (06:03→20:35)
[2018-03-14] MEDS: MOXIFLOXACIN 400 MG TAB PO ×2 (06:03)
[2018-03-14] MEDS: SLF 3 ML SYR IV ×6 (06:03→20:35)
[2018-03-14 06:27] LABS: HEMATOCRIT 27.7 % (42.0-52.0); HEMOGLOBIN 8.9 g/dl (13.5-17.5); MEAN CORPUSCULAR HEMOGLOBIN 27.7 pg (27.0-33.0); MEAN CORPUSCULAR HGB CONC 32.1 g/dl (32.0-36.5); MEAN CORPUSCULAR VOLUME 86.3 fl (80.0-96.0); PLATELET COUNT, AUTOMATED 175 10^3/uL (150-450); RED BLOOD COUNT 3.21 10^6/uL (4.30-6.10); RED CELL DISTRIBUTION WIDTH 17.9 % (11.5-14.5); WHITE BLOOD COUNT 8.8 10^3/uL (4.0-10.0)
[2018-03-14 06:45] LABS: ANION GAP 10 MEQ/L (8-16); BLOOD UREA NITROGEN 34 MG/DL (7-18); CARBON DIOXIDE LEVEL 19 MEQ/L (21-32); CHLORIDE LEVEL 115 MEQ/L (98-107); CREATININE FOR GFR 1.69 MG/DL (0.70-1.30); GLOMERULAR FILTRATION RATE 53.5 (>49); GLUCOSE, FASTING 85 MG/DL (70-100); POTASSIUM SERUM 4.3 MEQ/L (3.5-5.1); SODIUM LEVEL 144 MEQ/L (136-145)
[2018-03-14] MEDS: HumaLOG INSULIN (NovoLOG) PER UNIT SC ×8 (07:30→20:19)
[2018-03-14] MEDS: LEVALBUTEROL 1.25 MG/0.5 ML CONCENTRATE NEB INH ×8 (08:19→21:05)
[2018-03-14] MEDS: LABETALOL 100 MG TAB PO ×6 (09:30→20:34)
[2018-03-14] MEDS: SENNA 8.6 MG TAB (SENOKOT) PO ×4 (09:30→20:20)
[2018-03-14] MEDS: ASCORBIC ACID 500 MG TAB PO ×2 (09:30)
[2018-03-14] MEDS: ASPIRIN 81 MG ENTERIC TAB PO ×2 (09:30)
[2018-03-14] MEDS: FERROUS GLUCONATE 324 MG TAB PO ×2 (09:30)
[2018-03-14] MEDS: DOCUSATE SODIUM 100 MG CAP PO ×4 (09:31→20:19)
[2018-03-14] MEDS: LACTOBACILLUS ACIDOPHILUS CAP (BACID) PO ×4 (09:31→17:55)
[2018-03-14 11:25] LABS: BEDSIDE GLUCOSE 101 MG/DL (80-115)
[2018-03-14] MEDS: GABAPENTIN 300 MG CAP PO ×4 (12:33→20:32)
[2018-03-14] MEDS: **hydrALAZINE HCL** 25 MG TAB PO ×4 (16:16→20:32)
[2018-03-14 16:19] LABS: BEDSIDE GLUCOSE 69 MG/DL (80-115)
[2018-03-14 20:12] LABS: BEDSIDE GLUCOSE 91 MG/DL (80-115)
[2018-03-14] MEDS: zolPIDEM TARTRATE 5 MG TAB PO ×2 (21:19)
[2018-03-15] MEDS: HEPARIN SOD (PORCINE) 5000 UNITS/ML VIAL SC ×2 (05:48)
[2018-03-15] MEDS: MOXIFLOXACIN 400 MG TAB PO ×2 (05:48)
[2018-03-15] MEDS: SLF 3 ML SYR IV ×2 (05:48)
[2018-03-15] MEDS: PERCOCET 5MG/325MG TAB PO ×4 (05:53→12:06)
[2018-03-15 06:18] LABS: HEMATOCRIT 27.4 % (42.0-52.0); HEMOGLOBIN 8.7 g/dl (13.5-17.5); MEAN CORPUSCULAR HGB CONC 31.8 g/dl (32.0-36.5); MEAN CORPUSCULAR VOLUME 85.1 fl (80.0-96.0); PLATELET COUNT, AUTOMATED 191 10^3/uL (150-450); RED BLOOD COUNT 3.22 10^6/uL (4.30-6.10); RED CELL DISTRIBUTION WIDTH 18.1 % (11.5-14.5); WHITE BLOOD COUNT 9.6 10^3/uL (4.0-10.0)
[2018-03-15 06:33] LABS: ANION GAP 8 MEQ/L (8-16); BLOOD UREA NITROGEN 32 MG/DL (7-18); CALCIUM LEVEL 8.1 MG/DL (8.8-10.2); CARBON DIOXIDE LEVEL 19 MEQ/L (21-32); CHLORIDE LEVEL 114 MEQ/L (98-107); CREATININE FOR GFR 1.69 MG/DL (0.70-1.30); GLOMERULAR FILTRATION RATE 53.5 (>49); GLUCOSE, FASTING 76 MG/DL (70-100); POTASSIUM SERUM 4.8 MEQ/L (3.5-5.1); SODIUM LEVEL 141 MEQ/L (136-145)
[2018-03-15] MEDS: HumaLOG INSULIN (NovoLOG) PER UNIT SC ×4 (07:30→12:00)
[2018-03-15] MEDS: LEVALBUTEROL 1.25 MG/0.5 ML CONCENTRATE NEB INH ×4 (07:56→12:08)
[2018-03-15] MEDS: SENNA 8.6 MG TAB (SENOKOT) PO ×2 (08:25)
[2018-03-15] MEDS: DOCUSATE SODIUM 100 MG CAP PO ×2 (08:25)
[2018-03-15] MEDS: ASPIRIN 81 MG ENTERIC TAB PO ×2 (08:25)
[2018-03-15] MEDS: GABAPENTIN 300 MG CAP PO ×2 (08:26)
[2018-03-15] MEDS: LACTOBACILLUS ACIDOPHILUS CAP (BACID) PO ×2 (08:26)
[2018-03-15] MEDS: diltiaZEM **CD** 180 MG CAP PO ×2 (08:27)
[2018-03-15] MEDS: LABETALOL 100 MG TAB PO ×2 (08:27)
[2018-03-15] MEDS: ASCORBIC ACID 500 MG TAB PO ×2 (08:27)
[2018-03-15] MEDS: FERROUS GLUCONATE 324 MG TAB PO ×2 (08:27)
[2018-03-15] MEDS: **hydrALAZINE HCL** 25 MG TAB PO ×2 (08:28)
[2018-03-15] MEDS: FUROSEMIDE 40 MG/4 ML VIAL (J1940) IV ×2 (11:18)
[2018-03-15] MEDS: BISACODYL 10 MG SUPP PR ×2 (11:19)
[2018-03-15 12:04] LABS: BEDSIDE GLUCOSE 89 MG/DL (80-115)
[2018-03-17 00:06] LABS: BODY FLUID CULTURE Not Indicated (.); LEGIONELLA ANTIGEN URINE Negative (Negative); ORGANISM ID Not indicated. (.); SPECIMEN SOURCE Urine (.); URINE STREP PNEUMONIAE ANTIGEN Positive (Negative)
== END 2018-03-15 14:41 | disposition home or self-care (01) | DRG 694 ==
LOC: M MS5PR 03-04 → M PCU 03-09 14:22 → M ICU 04:27 → M PCU 03-09 16:50 → M MSPAV 03-13 15:03
PROC: 0T9030Z Drainage of Right Kidney with Drainage Device, Percutaneous Approach (ICD-10-PCS; principal; 2018-03-06)
PROC: 30233N1 Transfusion of Nonautologous Red Blood Cells into Peripheral Vein, Percutaneous Approach (ICD-10-PCS; 2018-03-07)
DX: N13.1 Hydronephrosis with ureteral stricture, not elsewhere classified (principal); I50.32 Chronic diastolic (congestive) heart failure; J18.9 Pneumonia, unspecified organism; N99.840 Postprocedural hematoma of a genitourinary system organ or structure following a genitourinary system procedure; D62 Acute posthemorrhagic anemia; E87.0 Hyperosmolality and hypernatremia; N17.9 Acute kidney failure, unspecified; R59.0 Localized enlarged lymph nodes; I16.0 Hypertensive urgency; K80.20 Calculus of gallbladder without cholecystitis without obstruction; M34.9 Systemic sclerosis, unspecified; M54.5 Low back pain; K21.9 Gastro-esophageal reflux disease without esophagitis; K59.00 Constipation, unspecified; I73.00 Raynaud's syndrome without gangrene; G43.909 Migraine, unspecified, not intractable, without status migrainosus; I73.1 Thromboangiitis obliterans [Buerger's disease]; I71.4 Abdominal aortic aneurysm, without rupture; F32.9 Major depressive disorder, single episode, unspecified; R10.13 Epigastric pain; E78.5 Hyperlipidemia, unspecified; R33.9 Retention of urine, unspecified; R63.4 Abnormal weight loss; R91.1 Solitary pulmonary nodule; I50.812 Chronic right heart failure; N40.1 Benign prostatic hyperplasia with lower urinary tract symptoms; I11.0 Hypertensive heart disease with heart failure; J43.9 Emphysema, unspecified; I34.0 Nonrheumatic mitral (valve) insufficiency; F17.210 Nicotine dependence, cigarettes, uncomplicated; I27.20 Pulmonary hypertension, unspecified; D50.9 Iron deficiency anemia, unspecified; G47.33 Obstructive sleep apnea (adult) (pediatric); E87.5 Hyperkalemia; Z86.010 Personal history of colon polyps; Z79.82 Long term (current) use of aspirin; Z79.899 Other long term (current) drug therapy; Z88.8 Allergy status to other drugs, medicaments and biological substances; Z89.021 Acquired absence of right finger(s); Z89.022 Acquired absence of left finger(s)

== ENCOUNTER → 2018-04-19 | Outpatient (CLI) | payer MEDICARE, MEDICAID ==
[~2018-04-19] MED LIST changes: -ISOVUE-370 76% 100ML VIAL (Q9967) As Ordered; +LIDOCAINE 1% MDV 20ML VIAL As Ordered
== END ==
LOC: M RADPRO 11:58
DX: R59.0 Localized enlarged lymph nodes (principal); I10 Essential (primary) hypertension; E78.00 Pure hypercholesterolemia, unspecified; F32.9 Major depressive disorder, single episode, unspecified; F41.9 Anxiety disorder, unspecified; N13.30 Unspecified hydronephrosis; I73.00 Raynaud's syndrome without gangrene; I73.1 Thromboangiitis obliterans [Buerger's disease]; F17.210 Nicotine dependence, cigarettes, uncomplicated; G47.30 Sleep apnea, unspecified; I25.10 Atherosclerotic heart disease of native coronary artery without angina pectoris; Z79.82 Long term (current) use of aspirin; Z79.891 Long term (current) use of opiate analgesic; Z79.899 Other long term (current) drug therapy; Z88.8 Allergy status to other drugs, medicaments and biological substances; Z91.048 Other nonmedicinal substance allergy status; Z98.1 Arthrodesis status; Z89.021 Acquired absence of right finger(s); Z89.022 Acquired absence of left finger(s)
CPT/HCPCS: 38505

== ENCOUNTER 2018-05-18 15:17 | Emergency (ER) | payer MEDICARE, MEDICAID ==
[2018-05-18 17:22] LABS: BASO # 0.1 10^3/uL (0.0-0.2); BASO % 1.3 % (0.0-1.0); EOS # 0.1 10^3/uL (0.0-0.50); EOS % 2.3 % (0.0-3.0); HEMATOCRIT 37.8 % (42.0-52.0); HEMOGLOBIN 11.7 g/dl (13.5-17.5); LYMPH # 1.6 10^3/uL (1.5-4.5); MEAN CORPUSCULAR HEMOGLOBIN 26.7 pg (27.0-33.0); MEAN CORPUSCULAR VOLUME 86.3 fl (80.0-96.0); MONO # 0.5 10^3/uL (0.0-0.8); NEUTROPHILS # 3.5 10^3/uL (1.8-7.7); NEUTROPHILS % 58.4 % (36.0-66.0); PLATELET COUNT, AUTOMATED 224 10^3/uL (150-450); RED BLOOD COUNT 4.38 10^6/uL (4.30-6.10); RED CELL DISTRIBUTION WIDTH 17.1 % (11.5-14.5)
[2018-05-18 17:32] LABS: PROTHROMBIN TIME 13.2 SECONDS (12.1-14.4)
[2018-05-18 17:33] LABS: PARTIAL THROMBOPLASTIN TIME 35.4 SECONDS (25.4-37.6)
[2018-05-18 17:46] LABS: ALBUMIN 3.4 GM/DL (3.2-5.2); ALBUMIN/GLOBULIN RATIO 0.72 (1.00-1.93); ALKALINE PHOSPHATASE 93 U/L (45-117); ALT/SGPT 33 U/L (12-78); ANION GAP 8 MEQ/L (8-16); AST/SGOT 32 U/L (7-37); BILIRUBIN,DIRECT 0.3 MG/DL (0.0-0.2); BILIRUBIN,TOTAL 0.7 MG/DL (0.2-1.0); BLOOD UREA NITROGEN 36 MG/DL (7-18); C REACTIVE PROTEIN QUANTITATIV 1.45 MG/DL (0.00-0.30); CALCIUM LEVEL 8.5 MG/DL (8.8-10.2); CARBON DIOXIDE LEVEL 22 MEQ/L (21-32); CHLORIDE LEVEL 107 MEQ/L (98-107); CREATININE FOR GFR 1.47 MG/DL (0.70-1.30); GLOMERULAR FILTRATION RATE > 60.0 (>49); GLUCOSE, FASTING 72 MG/DL (70-100); SODIUM LEVEL 137 MEQ/L (136-145); TOTAL PROTEIN 8.1 GM/DL (6.4-8.2)
[2018-05-18 17:57] LABS: ERYTHROCYTE SEDIMENTATION RATE 69 mm/hr (0-20)
== END 2018-05-18 19:40 | disposition home or self-care (01) ==
LOC: M ED 15:17
DX: G89.29 Other chronic pain (principal); R60.0 Localized edema; I10 Essential (primary) hypertension; E78.5 Hyperlipidemia, unspecified; M54.9 Dorsalgia, unspecified; F41.9 Anxiety disorder, unspecified; F32.9 Major depressive disorder, single episode, unspecified; R51 Headache; J45.909 Unspecified asthma, uncomplicated; G47.30 Sleep apnea, unspecified; K21.9 Gastro-esophageal reflux disease without esophagitis; I73.00 Raynaud's syndrome without gangrene; Z72.0 Tobacco use; Z79.82 Long term (current) use of aspirin; Z79.899 Other long term (current) drug therapy; Z88.8 Allergy status to other drugs, medicaments and biological substances
CPT/HCPCS: 71046

== ENCOUNTER → 2018-05-22 | Outpatient (CLI) | payer MEDICARE, MEDICAID ==
[~2018-05-22] MED LIST changes: +CIPROFLOXACIN 500 MG TAB As Ordered; +ISOVUE-300 61% 50ML VIAL (Q9967) As Ordered
== END ==
LOC: M RADPRO 11:47
DX: N13.30 Unspecified hydronephrosis (principal); Z79.891 Long term (current) use of opiate analgesic; Z79.899 Other long term (current) drug therapy
CPT/HCPCS: 50435

== ENCOUNTER 2018-07-15 00:43 | Emergency (ER) | payer MEDICARE, MEDICAID ==
[2018-07-15] MEDS: EPINEPHrine 1MG/10ML SYRINGE 1.5IN IV (00:45)
[2018-07-15] MEDS: SODIUM BICARBONATE 8.4% INJ 50 ML SYRINGE IV (00:47)
[2018-07-15] MEDS: DEXTROSE 50% 50 ML SYRINGE IV ×3 (00:51→04:33)
[2018-07-15] MEDS: SUCCINYLCHOLINE INJ 200 MG/10 ML VIAL (J0330) IV (00:56)
[2018-07-15] MEDS ORDERED: PROPOFOL 1,000 MG/100 ML VIAL As Ordered (00:56)
[2018-07-15] MEDS: PROPOFOL 1,000 MG in APPROPRIATE DILUENT 1 EA IV (01:05)
[2018-07-15] MEDS ORDERED: FUROSEMIDE 100 MG/10 ML VIAL (J1940) As Ordered (01:38)
[2018-07-15] MEDS: FUROSEMIDE 100 MG/10 ML VIAL (J1940) IV ×2 (01:45→04:02)
[2018-07-15] MEDS ORDERED: METAL LOCK LOOP XX (01:48)
[2018-07-15 02:12] LABS: ABG BASE EXCESS -12.2 (-2.0-2.0); ABG O2 SATURATION 75.7 % (95.0-99.0); ABG PARTIAL PRESSURE O2 61.1 mmHg (75.0-100.0); ABG STANDARD HCO3 14.5 MEQ/L (22.0-26.0)
[2018-07-15 02:14] LABS: ABG pH (ARTERIAL) 7.054 UNITS (7.350-7.450)
[2018-07-15 02:51] LABS: BASO # 0.1 10^3/uL (0.0-0.2); BASO % 0.4 % (0.0-1.0); HEMATOCRIT 27.3 % (42.0-52.0); HEMOGLOBIN 8.2 g/dl (13.5-17.5); IMMATURE GRANULOCYTE % 3.1 % (0-3.0); LYMPH # 1.4 10^3/uL (1.5-4.5); LYMPH % 4.1 % (24.0-44.0); MEAN CORPUSCULAR VOLUME 89.8 fl (80.0-96.0); MONO # 1.4 10^3/uL (0.0-0.8); MONO % 4.1 % (0.0-5.0); NEUTROPHILS % 88.3 % (36.0-66.0); PLATELET COUNT, AUTOMATED 204 10^3/uL (150-450); RED BLOOD COUNT 3.04 10^6/uL (4.30-6.10); RED CELL DISTRIBUTION WIDTH 17.1 % (11.5-14.5)
[2018-07-15 03:02] LABS: NEUTROPHILS # 30.1 10^3/uL (1.8-7.7); POS COUNT POS FLAG; POSITIVE DIFF POS FLAG
[2018-07-15 03:13] LABS: INR 1.39; PROTHROMBIN TIME 17.3 SECONDS (12.1-14.4)
[2018-07-15 03:14] LABS: PARTIAL THROMBOPLASTIN TIME 53.4 SECONDS (25.4-37.6)
[2018-07-15 03:26] LABS: ANION GAP 8 MEQ/L (8-16); BLOOD UREA NITROGEN 51 MG/DL (7-18); CALCIUM LEVEL 6.8 MG/DL (8.8-10.2); CARBON DIOXIDE LEVEL 21 MEQ/L (21-32); CHLORIDE LEVEL 112 MEQ/L (98-107); CPK CREATINE PHOSPHOKINASE 260 U/L (39-308); CREATININE FOR GFR 2.32 MG/DL (0.70-1.30); GLUCOSE, FASTING 129 MG/DL (70-100); MB/CK RELATIVE INDEX 1.23 (< OR =4); POTASSIUM SERUM 6.1 MEQ/L (3.5-5.1); SODIUM LEVEL 141 MEQ/L (136-145); TROPONIN I 1.66 NG/ML (< 0.10)
[2018-07-15] MEDS: HumuLIN R (REGULAR) INSULIN (NovoLIN R) **100U/ML** PER UNIT IV (03:39)
[2018-07-15 03:46] LABS: ABG BASE EXCESS -10.8 (-2.0-2.0); ABG HCO3 18.2 MEQ/L (22.0-26.0); ABG O2 SATURATION 84.7 % (95.0-99.0); ABG PARTIAL PRESSURE CO2 57.2 mmHg (35.0-45.0); ABG PARTIAL PRESSURE O2 67.1 mmHg (75.0-100.0); ABG STANDARD HCO3 15.6 MEQ/L (22.0-26.0); ABG pH (ARTERIAL) 7.121 UNITS (7.350-7.450)
[2018-07-15] MEDS ORDERED: VECURONIUM BROMIDE 10 MG VIAL As Ordered (04:13)
[2018-07-15] MEDS: VECURONIUM BROMIDE 10 MG VIAL IV ×2 (04:22→05:32)
[2018-07-15 04:53] LABS: ABG BASE EXCESS -14.1 (-2.0-2.0); ABG PARTIAL PRESSURE CO2 51.5 mmHg (35.0-45.0); ABG PARTIAL PRESSURE O2 88.8 mmHg (75.0-100.0); ABG STANDARD HCO3 13.2 MEQ/L (22.0-26.0); ABG TOTAL CO2 16.6 MEQ/L (23.0-31.0)
[2018-07-15 04:58] LABS: ABG pH (ARTERIAL) 7.082 UNITS (7.350-7.450)
[2018-07-15] MEDS: D10W 1,000 ML IV (05:04)
[2018-07-15 05:32] LABS: BEDSIDE GLUCOSE 71 MG/DL (80-115)
[2018-07-15 05:44] LABS: ABG BASE EXCESS -12.8 (-2.0-2.0); ABG HCO3 16.6 MEQ/L (22.0-26.0); ABG O2 SATURATION 84.1 % (95.0-99.0); ABG PARTIAL PRESSURE CO2 58.6 mmHg (35.0-45.0); ABG PARTIAL PRESSURE O2 66.3 mmHg (75.0-100.0); ABG TOTAL CO2 18.4 MEQ/L (23.0-31.0)
[2018-07-15 05:46] LABS: ABG pH (ARTERIAL) 7.069 UNITS (7.350-7.450)
[2018-07-15] MEDS ORDERED: SODIUM BICARBONATE 150 MEQ in D10W 1,000 ML IV (06:00)
[2018-07-16 10:41] LABS: BEDSIDE GLUCOSE < 10 MG/DL (80-115)
[2018-07-18 11:51] LABS: BEDSIDE GLUCOSE 71 MG/DL (80-115)
[2018-07-18 11:52] LABS: BEDSIDE GLUCOSE 333 MG/DL (80-115)
== END 2018-07-15 06:09 | disposition short-term general hospital (02) ==
LOC: M ED 00:43
DX: J96.90 Respiratory failure, unspecified, unspecified whether with hypoxia or hypercapnia (principal); I46.9 Cardiac arrest, cause unspecified; I50.9 Heart failure, unspecified; I51.7 Cardiomegaly; Z79.82 Long term (current) use of aspirin; Z79.899 Other long term (current) drug therapy; Z88.8 Allergy status to other drugs, medicaments and biological substances
CPT/HCPCS: J0330

== ENCOUNTER 2018-08-07 15:19 | Emergency (ER) | payer MEDICARE, MEDICAID ==
[~2018-08-07] VITALS: Ht 167.6 cm; Wt 66.8 kg
[~2018-08-07 15:19] MED LIST changes: +/LABE20TA; +/TAMS4CA OR; +ACET65TA; +AMBI5TAB OR; +AMBI5TAB PO; +AMLO10TA5 PO; +AMLO2.5T3 PO; +ASPI1TAB PO; +ASPI325T; +ASPI325T25 PO; +CARD180C4 PO; +CART180C3 PO; +CEFAD50CA PO; +CELE40TA PO; +CHLO125TA PO; +CHLO25TA PO; +CIPR25SS OR; -CIPROFLOXACIN 500 MG TAB As Ordered; +CITA40TA4 PO; +COLA100C5 PO; +CYCL5TAB PO; +CYMB1CAP5 PO; +DARV100T; +DILT180C28 PO; +DULO1CAP3 PO; +FERR325T16 PO; +FINA5TAB2 PO; +FLAG500T OR; +FLOMAX; +FURO40TA2 PO; +GABA-843 PO; +GABA-845 PO; +HYDR-3716 PO; +HYDR-3719 PO; +HYDR-3910 PO; +HYDR25TA PO; -ISOVUE-300 61% 50ML VIAL (Q9967) As Ordered; +LABE10TAB PO; +LEVA750T7 PO; -LIDOCAINE 1% MDV 20ML VIAL As Ordered; +LISI-538 PO; +LISI10TA4 OR; +MORP-38 PO; +MORP15TA2 PO; +MULT1TAB10 PO; +NICO21DI4; +NICO21DI4 TD; +NORC7.5T35 PO; +NUCY200T PO; +OMEP20CA3 PO; +OXYC-517 PO; +PATIENT COMMENTS; +PEG1POW PO; +PENT40TASA PO; +PERC5TAB8 OR; +PRED20TA PO; +SANT250O8 TOP; +SENN1TAB2 PO; +TRAM50TA2; +VARE1TA PO; +VICO5TAB; +VICO5TAB OR; +VITA500T PO; +ZOCO20TA PO; +flomax
[2018-08-07] MEDS ORDERED: HYDR200T3 PO (16:17)
[2018-08-07] MEDS ORDERED: PRAZ1CAP PO (16:17)
[2018-08-07] MEDS ORDERED: NICO21DI31 TOP (16:17)
[2018-08-07 16:36] LABS: HEMATOCRIT 29.5 % (42.0-52.0); HEMOGLOBIN 8.8 g/dl (13.5-17.5); MEAN CORPUSCULAR HEMOGLOBIN 27.2 pg (27.0-33.0); MEAN CORPUSCULAR HGB CONC 29.8 g/dl (32.0-36.5); PLATELET COUNT, AUTOMATED 197 10^3/uL (150-450); RED BLOOD COUNT 3.24 10^6/uL (4.30-6.10); WHITE BLOOD COUNT 9.9 10^3/uL (4.0-10.0)
[2018-08-07 17:01] LABS: ALBUMIN 3.2 GM/DL (3.2-5.2); ALT/SGPT 29 U/L (12-78); BILIRUBIN,DIRECT 0.2 MG/DL (0.0-0.2); BILIRUBIN,TOTAL 0.3 MG/DL (0.2-1.0); BLOOD UREA NITROGEN 39 MG/DL (7-18); CALCIUM LEVEL 8.3 MG/DL (8.8-10.2); CARBON DIOXIDE LEVEL 24 MEQ/L (21-32); CHLORIDE LEVEL 111 MEQ/L (98-107); CREATININE FOR GFR 1.39 MG/DL (0.70-1.30); GLOMERULAR FILTRATION RATE > 60.0 (>49); GLUCOSE, FASTING 101 MG/DL (70-100); POTASSIUM SERUM 4.7 MEQ/L (3.5-5.1); SODIUM LEVEL 142 MEQ/L (136-145)
[2018-08-07 17:31] LABS: ATYPICAL LYMPH 6 % (0-5); LYMPHOCYTES 7 % (16-52); METAMYELOCYTES 6 % (0-0); MONOCYTES 3 % (0-8); NEUTROPHILS 76 % (35-75)
[2018-08-07 17:32] LABS: PLATELET ESTIMATE NORMAL (NORMAL)
--- NOTE | 2018-08-07 18:21 | REP ---
Urinary tract sonography: History: Right nephrostomy tube dislodged. Sonographic findings: Scanning at the level urinary bladder shows that it is not distended. Increased renal cortical echogenicity pattern is seen bilaterally. There is a hypoechoic area along the lateral cortex of the right kidney consistent with hematoma. This measures 7.0 x 3.9 x 4.7 cm. The right nephrostomy tube can be seen in the hematoma and a very lateral portion of the cortex of the right kidney. The catheter does not appear to be in the collecting system. There is a mild amount of right-sided hydronephrosis. No left-sided hydronephrosis is seen. The left kidney shows some increased renal cortical echogenicity. Left renal dimensions are 9.5 x 5.0 x 4.3 cm. The right kidney measures 9.6 x 5.1 x 3.9 cm. Impression: Mild right-sided hydronephrosis. 7.0 x 3.9 x 4.7 cm perinephric versus subcapsular hematoma lateral to the right kidney. The patient's right-sided nephrostomy catheter is visible in the hematoma and in the lateral aspect of the cortex but likely not in the collecting system. A radiograph of the abdomen may provide additional information about catheter orientation and position. Electronically Signed by Gallito Forte MD 08/07/2018 07:48 P
[2018-08-07] MEDS ORDERED: NS 1,000 ML IV ONE (19:00)
[2018-08-07] MEDS ORDERED: KETOROLAC 30 MG/ML VIAL (J1885) IV ONE (19:00)
[2018-08-07 21:02] VITALS: BP 195/98
== END 2018-08-07 21:02 | disposition short-term general hospital (02) ==
LOC: M ED 15:19
DX: T83.022A Displacement of nephrostomy catheter, initial encounter (principal); N28.89 Other specified disorders of kidney and ureter; K21.9 Gastro-esophageal reflux disease without esophagitis; J45.909 Unspecified asthma, uncomplicated; E78.5 Hyperlipidemia, unspecified; Z79.82 Long term (current) use of aspirin